=== PATIENT | female | born 1945 | race Caucasian/White ===

== ENCOUNTER 2017-12-30 09:31 | Emergency (ER) | payer MEDICARE, OTHER ==
--- NOTE | 2017-12-30 10:20 | ER Document Report ---
ED Medical Screen (RME) - General Chief Complaint: Doesn't Feel Right Stated Complaint: FEELING WEAK Time Seen by Provider: 12/30/17 10:12 Mode of Arrival: Ambulatory Information source: Patient Notes: 72-year-old female history of 2 previous CVAs presents with complaints of not feeling well. Patient is unable to explain her complaints, denies any weakness numbness. Patient notes she woke around 4:00 this morning was feeling fine around 5 she started not feeling well I have greeted and performed a rapid initial assessment of this patient. A comprehensive ED assessment and evaluation of the patient, analysis of test results and completion of the medical decision making process will be conducted by additional ED providers. PHYSICAL EXAMINATION: GENERAL: Well-appearing, well-nourished and in no acute distress. HEAD: Atraumatic, normocephalic. EYES: Pupils equal round extraocular movements intact, conjunctiva are normal. ENT: Nares patent NECK: Normal range of motion LUNGS: No respiratory distress Musculoskeletal: Normal range of motion NEUROLOGICAL: Normal speech, normal gait. PSYCH: Normal mood, normal affect. SKIN: Warm, Dry, normal turgor, no rashes or lesions noted. TRAVEL OUTSIDE OF THE [place] IN LAST 30 DAYS: No - Related Data Allergies/Adverse Reactions: Penicillins Allergy (Verified 12/30/17 09:32) Past Medical History - Social History Frequency of alcohol use: None Drug Abuse: None - Past Medical History Cardiac Medical History: Reports: Hx Hypertension Neurological Medical History: Reports: Hx Cerebrovascular Accident Renal/ Medical History: Denies: Hx Peritoneal Dialysis Psychiatric Medical History: Reports: Hx Depression Past Surgical History: Reports: Hx Section, Hx Gynecologic Surgery - Immunizations Hx Diphtheria, Pertussis, Tetanus Vaccination: - unknown
[2017-12-30 10:48] LABS: INTERNATIONAL RATION (INR) 0.94; PARTIAL THROMBOPLASTIN TIME 41.7 SEC (23.5-35.8); PROTHROMBIN TIME 13.3 SEC (11.4-15.4)
[2017-12-30 10:50] LABS: ABSOLUTE EOSINOPHILS # (AUTO) 0.2 10^3/uL (0.0-0.6); ABSOLUTE LYMPHOCYTES (AUTO) 1.2 10^3/uL (0.5-4.7); ABSOLUTE MONOCYTES (AUTO) 0.6 10^3/uL (0.1-1.4); ABSOLUTE NEUT (AUTO) 2.4 10^3/uL (1.7-8.2); BASOPHILS % (AUTO) 0.8 % (0-2); EOSINOPHILS % (AUTO) 4.6 % (0-6); HEMATOCRIT 47.3 % (36.0-47.0); LYMPHOCYTES % (AUTO) 26.5 % (13-45); MEAN CORPUSCULAR HEMOGLOBIN 28.9 pg (27.0-33.4); MEAN CORPUSCULAR HGB CONC 33.7 g/dL (32.0-36.0); MEAN CORPUSCULAR VOLUME 86 fl (80-97); MONOCYTES % (AUTO) 13.8 % (3-13); PLATELET COUNT 175 10^3/uL (150-450); RED BLOOD COUNT 5.52 10^6/uL (3.72-5.28); RED CELL DISTRIBUTION WIDTH 13.9 % (11.5-14.0); SEGMENTED NEUTROPHILS % (AUTO) 54.3 % (42-78); TOTAL CELLS COUNTED % (AUTO) 100 %; WHITE BLOOD COUNT 4.4 10^3/uL (4.0-10.5)
--- NOTE | 2017-12-30 10:56 | ER Document Report ---
ED General - General Chief Complaint: Doesn't Feel Right Stated Complaint: FEELING WEAK Time Seen by Provider: 12/30/17 10:12 Mode of Arrival: Ambulatory Information source: Patient Notes: 72-year-old female complaining of "not feeling right, shaky, weak" since about 830 this morning. She felt this way starting at 8 AM and is similar to when she had 2 previous strokes, and 1 minii stroke. Scared she is having another one. No chest pain, sob, abd. pain, dysuria, fever, chills, sore throat or cough. She nor her sister who drove her here noticed any change in strength, behavior, speech , or thinking. Hx UTI. PCP: Dr. Bar. TRAVEL OUTSIDE OF THE [place] IN LAST 30 DAYS: No - Related Data Allergies/Adverse Reactions: Penicillins Allergy (Verified 12/30/17 09:32) Past Medical History - General Information source: Patient - Social History Smoking Status: Never Smoker Frequency of alcohol use: None Drug Abuse: None Lives with: Spouse/Significant other Family History: Reviewed & Not Pertinent Patient has suicidal ideation: No Patient has homicidal ideation: No - Past Medical History Cardiac Medical History: Reports: Hx Hypercholesterolemia, Hx Hypertension Neurological Medical History: Reports: Hx Cerebrovascular Accident Renal/ Medical History: Denies: Hx Peritoneal Dialysis Psychiatric Medical History: Reports: Hx Depression Past Surgical History: Reports: Hx Section, Hx Gynecologic Surgery - Immunizations Hx Diphtheria, Pertussis, Tetanus Vaccination: - unknown Review of Systems - Review of Systems Constitutional: See HPI EENT: No symptoms reported Cardiovascular: No symptoms reported Respiratory: No symptoms reported Gastrointestinal: No symptoms reported Genitourinary: No symptoms reported Female Genitourinary: No symptoms reported Musculoskeletal: No symptoms reported Skin: No symptoms reported Hematologic/Lymphatic: No symptoms reported Neurological/Psychological: No symptoms reported Physical Exam - Vital signs Vitals: Temp Pulse Resp BP Pulse Ox 98.7 F 93 20 132/80 H 97 12/30/17 09:37 12/30/17 09:37 12/30/17 09:37 12/30/17 09:37 12/30/17 09:37 Interpretation: Normal - General General appearance: Appears well, Alert - HEENT Head: Normocephalic, Atraumatic Eyes: Normal Conjunctiva: Normal Pupils: PERRL Pharynx: Normal Neck: Supple. No: Lymphadenopathy - Respiratory Respiratory status: No respiratory distress Chest status: Nontender Breath sounds: Normal Chest palpation: Normal - Cardiovascular Rhythm: Regular Heart sounds: Normal auscultation Murmur: No - Abdominal Inspection: Normal Distension: No distension Bowel sounds: Normal Tenderness: Nontender. No: Tender Organomegaly: No organomegaly - Back Back: Normal, Nontender - Extremities General upper extremity: Normal inspection, Nontender, Normal color, Normal ROM , Normal temperature General lower extremity: Normal inspection, Nontender, Normal color, Normal ROM , Normal temperature, Normal weight bearing. No: Georgina's sign Notes: conor normal strength - Neurological Neuro grossly intact: Yes Cognition: Normal Orientation: AAOx4 Brittany Coma Scale Eye Opening: Spontaneous Brittany Coma Scale Verbal: Oriented Platte Coma Scale Motor: Obeys Commands Brittany Coma Scale Total: 15 Speech: Normal Motor strength normal: LUE, RUE, LLE, RLE Sensory: Normal - Psychological Associated symptoms: Normal affect, Normal mood - Skin Skin Temperature: Warm Skin Moisture: Dry Skin Color: Normal Skin irregularity: negative: Rash Course - Re-evaluation Re-evalutation: 12/30/17 11:10 CT scan shows only chronic changes urinalysis is pending 12/30/17 12:49 Urinalysis shows 3+ bacteria and 13 WBCs. Previous visit showed the same with a [id number] genital culture result but I will treat for possible urinary tract infection pending urine culture. She is asymptomatic. Discussed with patient about the urine culture pending in the lab. She will follow-up with Dr. Galloway [facility]. 12/30/17 13:02 12/30/17 13:04 - Vital Signs Vital signs: Temp Pulse Resp BP Pulse Ox 98.7 F 76 18 132/76 H 97 12/30/17 09:37 12/30/17 10:10 12/30/17 10:10 12/30/17 10:10 12/30/17 10:38 - Laboratory Result Diagrams: 12/30/17 10:24 12/30/17 10:24 Laboratory results interpreted by me: 12/30/17 12/30/17 12/30/17 10:24 10:24 10:24 RBC 5.52 H Hgb 16.0 H Hct 47.3 H Monocytes % 13.8 H APTT 41.7 H AST 45 H Ur Leukocyte Esterase 12/30/17 11:28 RBC Hgb Hct Monocytes % APTT AST Ur Leukocyte Esterase LARGE H Discharge - Discharge Clinical Impression: bacteruria Condition: Good Disposition: HOME, SELF-CARE Instructions: Urinary Tract Infection ([facility]), Nitrofurantoin ([facility]) Additional Instructions: Drink plenty of fluids Macrobid 100 mg twice a day for 1 week Follow-up with Dr. Nilesh Leigh Return to the emergency room for any worsening of the symptoms Prescriptions: Nitrofurantoin Monohyd/M-Cryst [Macrobid 100 mg Capsule] 100 mg PO BID #14 capsule Referrals: MADDI HEWITT MD [NO LOCAL MD] - Follow up in 3-5 days
[2017-12-30 11:03] LABS: ALANINE AMINOTRANSFERASE 52 U/L (9-52); ALBUMIN 4.5 g/dL (3.5-5.0); ALKALINE PHOSPHATASE 72 U/L (38-126); ANION GAP 14 (5-19); ASPARTATE AMINO TRANSFERASE 45 U/L (14-36); BILIRUBIN,DIRECT 0.1 mg/dL (0.0-0.4); BILIRUBIN,TOTAL 0.7 mg/dL (0.2-1.3); BLOOD UREA NITROGEN 12 mg/dL (7-20); CALCIUM 9.7 mg/dL (8.4-10.2); CARBON DIOXIDE 27 mmol/L (22-30); CHLORIDE 102 mmol/L (98-107); CREATINE KINASE 38 U/L (30-135); GLUCOSE 101 mg/dL (75-110); SODIUM 142.5 mmol/L (137-145); TOTAL PROTEIN 7.4 g/dL (6.3-8.2)
--- NOTE | 2017-12-30 11:03 | RADIOLOGY REPORT (SQ) ---
EXAM DESCRIPTION: CT HEAD WITHOUT COMPLETED DATE/TIME: 12/30/2017 10:55 am REASON FOR STUDY: hx cva, not feeling right COMPARISON: 10/23/2016 TECHNIQUE: Axial images acquired through the brain without intravenous contrast. Images reviewed wi th bone, brain and subdural windows. Images stored on PACS. All CT scanners at this facility use dose modulation, iterative reconstruction, and/or weight based d osing when appropriate to reduce radiation dose to as low as reasonably achievable (ALARA). [facility]: Dose Right [facility]: CareDose [facility]: Dose Right [facility]: Teradose 4D [facility]: Smart [employer] RADIATION DOSE: CT Rad equipment meets quality standard of care and radiation dose reduction techniq ues were employed. CTDIvol: 64.6 mGy. DLP: 1163 mGy-cm.mGy. LIMITATIONS: None. FINDINGS: VENTRICLES: Prominent. CEREBRUM: No masses. No hemorrhage. No midline shift. Old left MCA territory and right MCA territo ry infarcts. Areas of low density in the white matter most likely due to chronic micro-vascular isch emic change. No evidence for acute infarction. CEREBELLUM: No masses. No hemorrhage. Old cerebellar infarcts. No evidence for acute infarction. EXTRAAXIAL SPACES: Age-related involutional change. No fluid collections. No masses. ORBITS AND GLOBE: No intra- or extraconal masses. Normal contour of globe without masses. CALVARIUM: No fracture. PARANASAL SINUSES: No fluid or mucosal thickening. SOFT TISSUES: No mass or hematoma. OTHER: No other significant finding. IMPRESSION: Chronic ischemic changes. EVIDENCE OF ACUTE STROKE: NO. TECHNICAL DOCUMENTATION: JOB ID: [id number] Quality ID # [id number]: Final reports with documentation of one or more dose reduction techniques (e.g., Au tomated exposure control, adjustment of the mA and/or kV according to patient size, use of iterative reconstruction technique) 2010 [employer]- All Rights Reserved Reading location - IP/workstation name: [email or web address]
--- NOTE | 2017-12-30 11:10 | RADIOLOGY REPORT (SQ) ---
EXAM DESCRIPTION: CHEST SINGLE VIEW COMPLETED DATE/TIME: 12/30/2017 10:57 am REASON FOR STUDY: hx cva, not feeling right COMPARISON: 10/23/2016 EXAM PARAMETERS: NUMBER OF VIEWS: One view. TECHNIQUE: Single frontal radiographic view of the chest acquired. RADIATION DOSE: NA LIMITATIONS: None. FINDINGS: LUNGS AND PLEURA: No opacities, masses or pneumothorax. No pleural effusion. MEDIASTINUM AND HILAR STRUCTURES: No masses. Contour normal. HEART AND VASCULAR STRUCTURES: Heart normal in size. Normal vasculature. BONES: No acute findings. HARDWARE: None in the chest. OTHER: No other significant finding. IMPRESSION: NO ACUTE RADIOGRAPHIC FINDING IN THE CHEST. TECHNICAL DOCUMENTATION: JOB ID: [id number] [employer]- All Rights Reserved Reading location - IP/workstation name: [email or web address]
[2017-12-30 11:15] LABS: CREATINE KINASE MB 0.31 ng/mL (<4.55)
[2017-12-30 11:17] LABS: TROPONIN I < 0.012 ng/mL
[2017-12-30 12:08] LABS: APPEARANCE,URINE SLIGHTLY-CLOUDY; BILIRUBIN,URINE NEGATIVE (NEGATIVE); COLOR,URINE YELLOW; GLUCOSE, URINE NEGATIVE (NEGATIVE); KETONES,URINE NEGATIVE (NEGATIVE); LEUKOCYTE ESTERASE,URINE LARGE (NEGATIVE); NITRITE,URINE NEGATIVE (NEGATIVE); PROTEIN,URINE NEGATIVE (NEGATIVE); URINE SPECIFIC GRAVITY 1.006; UROBILINOGEN,URINE NEGATIVE mg/dL (<2.0)
[2017-12-30] MEDS ORDERED: NITROFURANTOIN MONOHYD/M-CRYST 100 MG CAPSULE PO ONE (13:02)
--- NOTE | 2017-12-30 13:04 | EKG REPORT ---
SEVERITY:- BORDERLINE ECG - SINUS RHYTHM BORDERLINE T ABNORMALITIES, INFERIOR LEADS : Confirmed by: Marv Marcial MD 30-Dec-2017 13:03:22
[2017-12-30 14:05] VITALS: BP 139/73
== END 2017-12-30 14:05 | disposition home or self-care (01) ==
LOC: ER 09:31
DX: R82.71 Bacteriuria (principal); R53.1 Weakness; I10 Essential (primary) hypertension; Z86.73 Personal history of transient ischemic attack (TIA), and cerebral infarction without residual deficits; Z88.0 Allergy status to penicillin
CPT/HCPCS: 36415; 70450; 71045; 80053; 81001; 82550; 82553; 84484; 85025; 85610; 85730; 93005; 93010; 99285

== ENCOUNTER 2018-03-16 18:03 | Inpatient (IN) | payer MEDICARE, OTHER ==
--- NOTE | 2018-03-16 18:24 | ER Document Report ---
ED Medical Screen (RME) - General Chief Complaint: Altered Mental Status Stated Complaint: ALTERED MENTAL STATUS Time Seen by Provider: 03/16/18 18:12 Notes: RAPID MEDICAL EVALUATION DISCLOSURE I have seen this patient as part of a Rapid Medical Evaluation and, if applicable, placed any initially appropriate orders. The patient will be seen and fully evaluated, including a full history and physical exam, by a provider ( in Main ED or Fast Track) when a room becomes available. 72-year-old female PMH CVA/TIA who with family who states that she has been confused over the past day. The patient states she feels like she cannot get her words out and noticed this yesterday around 5 PM. The family also states she is not able to recognize letters and simple objects. She is also not able to operate her iPad which she is normally very good at. Patient denies any slurred speech or extremity weakness numbness tingling. The daughter, Mckenzie, denies any changes in facial symmetry. EXAM CTAB RRR Mild expressive aphasia Strength 5/5 with intact sensation all extremities NOTE Since onset symptoms 25 hours ago, code stroke not activated TRAVEL OUTSIDE OF THE [place] IN LAST 30 DAYS: No - Related Data Allergies/Adverse Reactions: Penicillins Allergy (Verified 12/30/17 09:32) Past Medical History - Past Medical History Cardiac Medical History: Reports: Hx Hypercholesterolemia, Hx Hypertension Neurological Medical History: Reports: Hx Cerebrovascular Accident Renal/ Medical History: Denies: Hx Peritoneal Dialysis Psychiatric Medical History: Reports: Hx Depression Past Surgical History: Reports: Hx Section, Hx Gynecologic Surgery - Immunizations Hx Diphtheria, Pertussis, Tetanus Vaccination: - unknown
--- NOTE | 2018-03-16 19:36 | RADIOLOGY REPORT (SQ) ---
EXAM DESCRIPTION: CT HEAD WITHOUT COMPLETED DATE/TIME: 03/16/2018 7:08 pm REASON FOR STUDY: aphasia; agnosia; eval stroke COMPARISON: CT brain 12/30/2017. TECHNIQUE: Axial images acquired through the brain without intravenous contrast. Images reviewed wi th bone, brain and subdural windows. Images stored on PACS. All CT scanners at this facility use dose modulation, iterative reconstruction, and/or weight based d osing when appropriate to reduce radiation dose to as low as reasonably achievable (ALARA). [facility]: Dose Right [facility]: CareDose [facility]: Dose Right [facility]: Teradose 4D [facility]: Smart [employer] RADIATION DOSE: mGy. LIMITATIONS: None. FINDINGS: VENTRICLES: Prominent. CEREBRUM: No mass effect. No hemorrhage. No midline shift. Areas of low density in the white matte r most likely due to chronic micro-vascular ischemic change. Remote infarct at the left frontal lobe . Loss of tovar-white matter differentiation at the left parietal lobe. CEREBELLUM: No hemorrhage. No alteration of density. No evidence for acute infarction. Bilateral o ld infarcts at the cerebellar hemispheres. EXTRAAXIAL SPACES: Age-related involutional change. No fluid collections. ORBITS AND GLOBE: Symmetrical contour of the globes. CALVARIUM: No depressed fracture. PARANASAL SINUSES: No air-fluid level. SOFT TISSUES: No hematoma. IMPRESSION: 1. Loss of tovar-white matter differentiation at the left parietal lobe, suggestive of an acute/ subacute infarct at the left MCA territory. No acute intracranial hemorrhage. 2. Diffuse parenchymal volume loss. Chronic microvascular ischemic changes with old left frontal and bilateral cerebellar infarcts. EVIDENCE OF ACUTE STROKE: YES. LEFT MCA COMMENT: Pertinent findings on the imaging study reported as a CRITICAL RESULT to Diana Cunha at19 :30 hrs on 03/16/2018. Category of Critical Result: Loss of tovar-white matter differentiation at the left parietal lobe, sug gestive of an acute/ subacute infarct at the left MCA territory. Quality ID # [id number]: Final reports with documentation of one or more dose reduction techniques (e.g., Au tomated exposure control, adjustment of the mA and/or kV according to patient size, use of iterative reconstruction technique) TECHNICAL DOCUMENTATION: JOB ID: [id number] [place]-[id number] 2010 [employer]- All Rights Reserved Reading location - IP/workstation name: [email or web address]
--- NOTE | 2018-03-16 19:38 | RADIOLOGY REPORT (SQ) ---
EXAM DESCRIPTION: CHEST 2 VIEWS COMPLETED DATE/TIME: 03/16/2018 7:20 pm REASON FOR STUDY: stroke like sx COMPARISON: Chest x-ray 10/23/2016. EXAM PARAMETERS: NUMBER OF VIEWS: two views TECHNIQUE: Digital Frontal and Lateral radiographic views of the chest acquired. RADIATION DOSE: NA LIMITATIONS: none FINDINGS: LUNGS AND PLEURA: No consolidation, pneumothorax or pleural effusion. MEDIASTINUM AND HILAR STRUCTURES: No masses or contour abnormalities. HEART AND VASCULAR STRUCTURES: Heart normal size. No evidence for failure. BONES: No acute findings. HARDWARE: None in the chest. IMPRESSION: No acute radiographic finding in the chest. TECHNICAL DOCUMENTATION: JOB ID: [id number] [id number] 2010 [employer]- All Rights Reserved Reading location - IP/workstation name: [email or web address]
--- NOTE | 2018-03-16 19:39 | ER Document Report ---
ED Neuro Symptoms/Deficit - General Chief Complaint: Altered Mental Status Stated Complaint: ALTERED MENTAL STATUS Time Seen by Provider: 03/16/18 18:12 Mode of Arrival: Wheelchair Information source: Patient, Relative Notes: Patient with complaint of confusion and being unable to put her words together. Patient's family states that this started Friday night at 4 PM. According to family patient usually uses her iPad every day patient was unable to recall the password, upon further investigation family showed patient some words written on a piece of paper and patient was only able to recall 50% of them. Patient denies any slurred speech, any facial numbness or droop or any extremity weakness or numbness. Family reports that patient has a history of a TIA 1 year ago that her symptoms were similar to this at that time. Patient denies any acute complaints, denies any fever, nausea, vomiting. Patient does report that 2 days ago she had multiple episodes of diarrhea which is now resolved. Patient is already taking Plavix 75 mg daily as a result of her previous TIA. TRAVEL OUTSIDE OF THE [place] IN LAST 30 DAYS: No - Related Data Allergies/Adverse Reactions: Penicillins Allergy (Verified 12/30/17 09:32) Past Medical History - Social History Smoking Status: Former Smoker Chew tobacco use (# tins/day): No Frequency of alcohol use: None Drug Abuse: None Family History: Reviewed & Not Pertinent Patient has suicidal ideation: No Patient has homicidal ideation: No - Past Medical History Cardiac Medical History: Reports: Hx Hypercholesterolemia, Hx Hypertension Neurological Medical History: Reports: Hx Cerebrovascular Accident Renal/ Medical History: Denies: Hx Peritoneal Dialysis Psychiatric Medical History: Reports: Hx Depression Past Surgical History: Reports: Hx Section, Hx Gynecologic Surgery - Immunizations Hx Diphtheria, Pertussis, Tetanus Vaccination: - unknown Physical Exam - Vital signs Vitals: Resp Pulse Ox 15 97 03/16/18 19:43 03/16/18 19:43 Course - Re-evaluation Re-evalutation: Well-appearing 72-year-old female in no acute distress. Patient is alert and oriented 4. Patient with onset of confusion and being unable to put her words together starting last night at 4pm. Radiology called with critical findings of acute/subacute infarct to the left MCA. Awaiting all lab results. Patient's physical exam is benign. Patient does still report some periods where she has a hard time putting her words together but denies any other symptoms such as slurred speech, any physical deficits such as weakness, numbness, paralysis. Updated patient and family regarding CT results. Patient with no complaints at this time. Vitals stable. Patient is outside the treatment window for TPA. Patient is already taking Plavix. Will call hospitalist as soon as all labs resulted. All laboratory studies are unremarkable. Patient has not had any change in her symptoms. Patient has remained hemodynamically stable during her stay in the ED. Patient will be admitted to hospitalist, Dr. Rodriguez agrees to admit patient. - Vital Signs Vital signs: Temp Pulse Resp BP Pulse Ox 97.9 F 66 20 126/61 H 96 03/17/18 03:46 03/17/18 04:00 03/17/18 04:00 03/17/18 04:00 03/17/18 04:00 - Laboratory Result Diagrams: 03/17/18 04:39 03/16/18 19:34 Laboratory results interpreted by me: 03/16/18 03/16/18 03/16/18 19:34 19:34 19:34 RBC 5.39 H Hgb 15.6 H Monocytes % 16.0 H APTT 39.4 H Est GFR (Non-Af Amer) 56 L AST 54 H ALT 56 H Ur Leukocyte Esterase 03/16/18 20:23 RBC Hgb Monocytes % APTT Est GFR (Non-Af Amer) AST ALT Ur Leukocyte Esterase TRACE H Discharge - Discharge Clinical Impression: Stroke Qualifiers: CVA mechanism: unspecified Qualified Code(s): I63.9 - Cerebral infarction, unspecified Condition: Stable Disposition: ADMITTED INPATIENT Admitting Provider: Hospitalist Unit Admitted: Telemetry
[2018-03-16 19:48] LABS: ABSOLUTE EOSINOPHILS # (AUTO) 0.2 10^3/uL (0.0-0.6); ABSOLUTE LYMPHOCYTES (AUTO) 1.5 10^3/uL (0.5-4.7); ABSOLUTE MONOCYTES (AUTO) 0.8 10^3/uL (0.1-1.4); ABSOLUTE NEUT (AUTO) 2.5 10^3/uL (1.7-8.2); BASOPHILS % (AUTO) 0.7 % (0-2); EOSINOPHILS % (AUTO) 4.4 % (0-6); HEMATOCRIT 46.3 % (36.0-47.0); HEMOGLOBIN 15.6 g/dL (12.0-15.5); LYMPHOCYTES % (AUTO) 29.3 % (13-45); MEAN CORPUSCULAR HGB CONC 33.7 g/dL (32.0-36.0); MEAN CORPUSCULAR VOLUME 86 fl (80-97); PLATELET COUNT 171 10^3/uL (150-450); RED BLOOD COUNT 5.39 10^6/uL (3.72-5.28); RED CELL DISTRIBUTION WIDTH 13.5 % (11.5-14.0); SEGMENTED NEUTROPHILS % (AUTO) 49.6 % (42-78); TOTAL CELLS COUNTED % (AUTO) 100 %; WHITE BLOOD COUNT 5.1 10^3/uL (4.0-10.5)
[2018-03-16 19:49] LABS: INTERNATIONAL RATION (INR) 0.93; PARTIAL THROMBOPLASTIN TIME 39.4 SEC (23.5-35.8); PROTHROMBIN TIME 12.9 SEC (11.4-15.4)
[2018-03-16 20:04] LABS: ALANINE AMINOTRANSFERASE 56 U/L (9-52); ALBUMIN 4.5 g/dL (3.5-5.0); ALKALINE PHOSPHATASE 85 U/L (38-126); ANION GAP 12 (5-19); ASPARTATE AMINO TRANSFERASE 54 U/L (14-36); BILIRUBIN,DIRECT 0.3 mg/dL (0.0-0.4); BILIRUBIN,TOTAL 0.6 mg/dL (0.2-1.3); BLOOD UREA NITROGEN 16 mg/dL (7-20); CALCIUM 9.8 mg/dL (8.4-10.2); CARBON DIOXIDE 28 mmol/L (22-30); CHLORIDE 101 mmol/L (98-107); CREATINE KINASE 42 U/L (30-135); GLUCOSE 97 mg/dL (75-110); POTASSIUM 4.3 mmol/L (3.6-5.0); TOTAL PROTEIN 7.9 g/dL (6.3-8.2)
[2018-03-16] MEDS ORDERED: DOCUSATE SODIUM 100 MG CAPSULE PO PRN (20:43)
[2018-03-16] MEDS ORDERED: MAGNESIUM HYDROXIDE SUSP 30 ML UDCUP PO PRN (20:43)
[2018-03-16] MEDS ORDERED: ACETAMINOPHEN 325 MG TABLET PO PRN (20:43)
[2018-03-16 20:48] LABS: APPEARANCE,URINE CLEAR; BILIRUBIN,URINE NEGATIVE (NEGATIVE); COLOR,URINE STRAW; GLUCOSE, URINE NEGATIVE (NEGATIVE); KETONES,URINE NEGATIVE (NEGATIVE); LEUKOCYTE ESTERASE,URINE TRACE (NEGATIVE); NITRITE,URINE NEGATIVE (NEGATIVE); PROTEIN,URINE NEGATIVE (NEGATIVE); URINE SPECIFIC GRAVITY 1.002; UROBILINOGEN,URINE NEGATIVE mg/dL (<2.0)
[2018-03-16] MEDS: HEPARIN SOD (PORCINE) 5,000 UNIT/ML 1 ML SYRINGE SUBCUT SCH (21:29)
[2018-03-16] MEDS: CARVEDILOL 3.125 MG TABLET PO SCH (21:29)
[2018-03-16] MEDS: ATORVASTATIN CALCIUM 10 MG TABLET PO SCH (21:30)
[2018-03-16] MEDS: ALPRAZOLAM 0.5 MG TABLET PO SCH (21:30)
[2018-03-17 05:09] LABS: ABSOLUTE EOSINOPHILS # (AUTO) 0.3 10^3/uL (0.0-0.6); ABSOLUTE LYMPHOCYTES (AUTO) 1.6 10^3/uL (0.5-4.7); ABSOLUTE MONOCYTES (AUTO) 0.8 10^3/uL (0.1-1.4); ABSOLUTE NEUT (AUTO) 1.9 10^3/uL (1.7-8.2); EOSINOPHILS % (AUTO) 5.6 % (0-6); HEMATOCRIT 43.2 % (36.0-47.0); HEMOGLOBIN 14.7 g/dL (12.0-15.5); LYMPHOCYTES % (AUTO) 35.3 % (13-45); MEAN CORPUSCULAR HEMOGLOBIN 29.4 pg (27.0-33.4); MEAN CORPUSCULAR HGB CONC 34.1 g/dL (32.0-36.0); MEAN CORPUSCULAR VOLUME 86 fl (80-97); MONOCYTES % (AUTO) 17.4 % (3-13); PLATELET COUNT 152 10^3/uL (150-450); RED BLOOD COUNT 5.03 10^6/uL (3.72-5.28); RED CELL DISTRIBUTION WIDTH 13.5 % (11.5-14.0); SEGMENTED NEUTROPHILS % (AUTO) 40.7 % (42-78); TOTAL CELLS COUNTED % (AUTO) 100 %; WHITE BLOOD COUNT 4.6 10^3/uL (4.0-10.5)
[2018-03-17] MEDS: HEPARIN SOD (PORCINE) 5,000 UNIT/ML 1 ML SYRINGE SUBCUT SCH ×3 (05:10→21:13)
--- NOTE | 2018-03-17 05:22 | PDOC H&P ---
History of Present Illness Admission Date/PCP: 03/16/18 20:55 MADDI HEWITT MD Patient complains of: Word finding difficulty History of Present Illness: TATYANA DONAHUE is a 72 year old female with a past medical history of hypertension, dyslipidemia, obesity and remote CVA without deficit. Patient presents with greater than 24 hours of word finding difficulty and trouble using her iPad. She denies focal weakness, confusion, headache, palpitations nausea vomiting or chest pain. She denies recent change in medication regiment. Patient's daughter is at bedside who verifies history. She is currently in no distress and conversational. In the emergency room she is found to have a CT of the head suggestive of a left MCA infarct but an otherwise unremarkable workup. She receives aspirin and referred to the hospitalist for admission. Past Medical History Cardiac Medical History: Reports: Hyperlipidema, Hypertension Neurological Medical History: Reports: Ischemic CVA Psychiatric Medical History: Reports: Depression Past Surgical History Past Surgical History: Reports: Section Social History Information Source: Patient Lives with: Family Smoking Status: Former Smoker Number of Years Smokin Last Time Smoked: 1982 Frequency of Alcohol Use: None Hx Recreational Drug Use: No Drugs: None Hx Prescription Drug Abuse: No - Advance Directive Resuscitation Status: Full Code Family History Family History: DM, Hypertension Parental Family History Reviewed: Yes Children Family History Reviewed: Yes Sibling(s) Family History Reviewed.: Yes Medication/Allergy Home Medications: Alprazolam [Xanax 0.5 mg Tablet] 0.5 mg PO Q12HP PRN 04/22/15 Amlodipine Besylate [Norvasc 5 mg Tablet] 5 mg PO DAILY 04/22/15 Bupropion HCl [Bupropion Xl] 150 mg PO Q12 04/22/15 Cholecalciferol (Vitamin D3) [Vitamin D] 1,000 unit PO BID 04/22/15 [place]-3/Dha/Epa/Fish Oil [Fish Oil 1,000 mg Softgel] 1 each PO DAILY 04/22/15 Pravastatin Sodium [Pravachol] 20 mg PO QHS 04/22/15 Clopidogrel Bisulfate [Plavix 75 mg Tablet] 75 mg PO DAILY #30 tablet 04/24/15 Carvedilol [Carvedilol] 3.125 mg PO Q12 12/30/17 Cyanocobalamin/FA/Pyridoxine [F[place]bee Tablet] 1 tab PO DAILY 12/30/17 Aspirin [Aspirin EC] 81 mg PO DAILY 03/16/18 Allergies/Adverse Reactions: Penicillins Allergy (Verified 12/30/17 09:32) Review of Systems Constitutional: ABSENT: chills, fever(s), headache(s), weight gain, weight loss Eyes: ABSENT: visual disturbances Ears: ABSENT: hearing changes Cardiovascular: ABSENT: chest pain, dyspnea on exertion, edema, orthropnea, palpitations Respiratory: ABSENT: cough, hemoptysis Gastrointestinal: ABSENT: abdominal pain, constipation, diarrhea, hematemesis, hematochezia, nausea, vomiting Genitourinary: ABSENT: dysuria, hematuria Musculoskeletal: ABSENT: joint swelling Integumentary: ABSENT: rash, wounds Neurological: ABSENT: abnormal gait, abnormal speech, confusion, dizziness, focal weakness, syncope Psychiatric: ABSENT: anxiety, depression, homidical ideation, suicidal ideation Endocrine: ABSENT: cold intolerance, heat intolerance, polydipsia, polyuria Hematologic/Lymphatic: ABSENT: easy bleeding, easy bruising Physical Exam Vital Signs: Temp Pulse Resp BP Pulse Ox 97.9 F 66 20 126/61 H 96 03/17/18 03:46 03/17/18 04:00 03/17/18 04:00 03/17/18 04:00 03/17/18 04:00 General appearance: PRESENT: no acute distress, well-developed, well-nourished Head exam: PRESENT: atraumatic, normocephalic Eye exam: PRESENT: conjunctiva pink, EOMI, PERRLA. ABSENT: scleral icterus Ear exam: PRESENT: normal external ear exam Mouth exam: PRESENT: moist, tongue midline Neck exam: ABSENT: carotid bruit, JVD, lymphadenopathy, thyromegaly Respiratory exam: PRESENT: clear to auscultation conor. ABSENT: rales, rhonchi, wheezes Cardiovascular exam: PRESENT: RRR. ABSENT: diastolic murmur, rubs, systolic murmur Pulses: PRESENT: normal dorsalis pedis pul Vascular exam: PRESENT: normal capillary refill GI/Abdominal exam: PRESENT: normal bowel sounds, soft. ABSENT: distended, guarding, mass, organolmegaly, rebound, tenderness Rectal exam: PRESENT: deferred Extremities exam: PRESENT: full ROM. ABSENT: calf tenderness, clubbing, pedal edema Neurological exam: PRESENT: alert, awake, oriented to person, oriented to place , oriented to time, oriented to situation, CN II-XII grossly intact. ABSENT: motor sensory deficit Psychiatric exam: PRESENT: appropriate affect, normal mood. ABSENT: homicidal ideation, suicidal ideation Skin exam: PRESENT: dry, intact, warm. ABSENT: cyanosis, rash Results Laboratory Results: 03/17/18 04:39 03/17/18 04:39 WBC 4.6 RBC 5.03 Hgb 14.7 Hct 43.2 MCV 86 MCH 29.4 MCHC 34.1 RDW 13.5 Plt Count 152 Seg Neutrophils % 40.7 L Lymphocytes % 35.3 Monocytes % 17.4 H Eosinophils % 5.6 Basophils % 1.0 Absolute Neutrophils 1.9 Absolute Lymphocytes 1.6 Absolute Monocytes 0.8 Absolute Eosinophils 0.3 Absolute Basophils 0.0 Impressions: Chest X-Ray 03/16/18 18:20 IMPRESSION: No acute radiographic finding in the chest. Head CT 03/16/18 18:20 IMPRESSION: 1. Loss of tovar-white matter differentiation at the left parietal lobe, suggestive of an acute/ subacute infarct at the left MCA territory. No acute intracranial hemorrhage. 2. Diffuse parenchymal volume loss. Chronic microvascular ischemic changes with old left frontal and bilateral cerebellar infarcts. EVIDENCE OF ACUTE STROKE: YES. LEFT MCA Assessment & Plan - Diagnosis (1) Acute CVA (cerebrovascular accident) Is this a current diagnosis for this admission?: Yes Plan: CVA care set, permissive hypertension, aspirin and statin. Speech therapy consult, follow-up carotid Doppler and echo. (2) HTN (hypertension) Is this a current diagnosis for this admission?: Yes Plan: Permissive hypertension, ZORAIDA inhibitor - Time Time Spent: 30 to 50 Minutes - Inpatient Certification Medical Necessity: Need Close Monitoring Due to Risk of Patient Decompensation
[2018-03-17 05:28] LABS: ANION GAP 11 (5-19); BLOOD UREA NITROGEN 13 mg/dL (7-20); CALCIUM 9.6 mg/dL (8.4-10.2); CARBON DIOXIDE 29 mmol/L (22-30); CHLORIDE 104 mmol/L (98-107); CHOLESTEROL 112.75 mg/dL (0-200); GLUCOSE 91 mg/dL (75-110); POTASSIUM 3.8 mmol/L (3.6-5.0); SODIUM 144.4 mmol/L (137-145); TRIGLYCERIDES 106 mg/dL (<150)
[2018-03-17 05:43] LABS: DIRECT LDL < 30 mg/dL (<100)
--- NOTE | 2018-03-17 08:54 | EKG REPORT ---
SEVERITY:- BORDERLINE ECG - SINUS RHYTHM LVH BY VOLTAGE BORDERLINE T ABNORMALITIES, INFERIOR LEADS : Confirmed by: Lynn Merchant 17-Mar-2018 08:53:56
[2018-03-17] MEDS: CLOPIDOGREL BISULFATE 75 MG TABLET PO SCH (11:39)
[2018-03-17] MEDS: ASPIRIN 81 MG TABLET, CHEWABLE PO SCH (11:40)
[2018-03-17] MEDS: ALPRAZOLAM 0.5 MG TABLET PO SCH ×2 (11:40→21:14)
[2018-03-17] MEDS: CARVEDILOL 3.125 MG TABLET PO SCH ×2 (11:40→21:14)
--- NOTE | 2018-03-17 14:07 | RADIOLOGY REPORT (SQ) ---
EXAM DESCRIPTION: CAROTID DOPPLER COMPLETED DATE/TIME: 03/17/2018 1:36 pm REASON FOR STUDY: cva COMPARISON: April 2015 TECHNIQUE: Grayscale ultrasound, Doppler velocity and spectra, and color Doppler images acquired of the extra-cranial carotid and vertebral arteries. Images stored on PACS. LIMITATIONS: None. FINDINGS: RIGHT CAROTID CCA Velocities: Within normal limits. ICA Velocities Peak systolic 0.63 m/s. End diastolic 0.14 m/s. Proximal ICA/CCA peak systolic ratio 1.0. Spectra normal. No significant plaque. LEFT CAROTID CCA Velocities: Within normal limits. ICA Velocities Peak systolic 0.80 m/s. End diastolic 0.21 m/s. Proximal ICA/CCA peak systolic ratio 1.4. Spectra normal. No significant plaque. VERTEBRAL ARTERIES: Antegrade flow. Normal waveforms. SUBCLAVIAN ARTERIES: No finding. OTHER: No other significant finding. IMPRESSION: NO HEMODYNAMICALLY SIGNIFICANT STENOSIS. COMMENT: Quality ID #[id number]: Velocity criteria are extrapolated from the diameter data as defined by t he Society of Radiologists in Ultrasound Consensus Conference. Radiology 2003: 229; 340-346. TECHNICAL DOCUMENTATION: JOB ID: [id number] [employer]- All Rights Reserved Reading location - IP/workstation name: [email or web address]
--- NOTE | 2018-03-17 15:13 | PDOC PROGRESS REPORT ---
Subjective Progress Note for:: 03/17/18 Subjective:: TATYANA DONAHUE is a 72 year old female who presented to the emergency department 03/16/2018 with a 24 hour history of word finding difficulty. CT head suggestive of a left MCA infarct. MRI/MRA pending. PMH includes HTN, dyslipidemia, CVA without deficit, and obesity. The patient was seen this morning on rounds, she is alert and oriented 3, able to answer all questions appropriately and speaking full sentences without pause. The patient does not exhibit symptoms of difficulty with word finding. Her speech is clear, she does not slur her words, and she is able to tolerate p.o. intake. No facial droop. Equal strength in all extremities, she is able to ambulate without difficulty. The patient denies any visual changes, headaches, or parasthesia. Reason For Visit: CVA Physical Exam Vital Signs: Temp Pulse Resp BP Pulse Ox 98.3 F 72 16 121/55 L 95 03/17/18 12:27 03/17/18 12:27 03/17/18 12:27 03/17/18 12:27 03/17/18 12:27 Intake & Output 03/16/18 03/17/18 03/18/18 06:59 06:59 06:59 Intake Total 203 Output Total 0 Balance 203 Weight 38.9 kg General appearance: PRESENT: no acute distress Head exam: PRESENT: atraumatic Eye exam: PRESENT: conjunctiva pink, EOMI, PERRLA Mouth exam: PRESENT: dry mucosa Neck exam: PRESENT: full ROM Respiratory exam: PRESENT: clear to auscultation conor, symmetrical, unlabored Cardiovascular exam: PRESENT: irregular rhythm Pulses: PRESENT: normal radial pulses GI/Abdominal exam: PRESENT: normal bowel sounds, soft. ABSENT: tenderness Rectal exam: PRESENT: deferred Extremities exam: PRESENT: full ROM, pedal edema Musculoskeletal exam: PRESENT: ambulatory, full ROM Neurological exam: PRESENT: alert, awake, oriented to person, oriented to place , oriented to time, oriented to situation, other - Patient reports difficulty with word finding, but was able to answer all questions appropriatley Psychiatric exam: PRESENT: appropriate affect Skin exam: PRESENT: intact, normal color Results Laboratory Results: 03/17/18 04:39 03/17/18 04:39 03/17/18 03/17/18 04:39 04:39 WBC 4.6 RBC 5.03 Hgb 14.7 Hct 43.2 MCV 86 MCH 29.4 MCHC 34.1 RDW 13.5 Plt Count 152 Seg Neutrophils % 40.7 L Lymphocytes % 35.3 Monocytes % 17.4 H Eosinophils % 5.6 Basophils % 1.0 Absolute Neutrophils 1.9 Absolute Lymphocytes 1.6 Absolute Monocytes 0.8 Absolute Eosinophils 0.3 Absolute Basophils 0.0 Sodium 144.4 Potassium 3.8 Chloride 104 Carbon Dioxide 29 Anion Gap 11 BUN 13 Creatinine 0.88 Est GFR ( Amer) > 60 Est GFR (Non-Af Amer) > 60 Glucose 91 Calcium 9.6 Triglycerides 106 Cholesterol 112.75 LDL Cholesterol Direct < 30 VLDL Cholesterol 21.0 HDL Cholesterol 61 Impressions: Chest X-Ray 03/16/18 18:20 IMPRESSION: No acute radiographic finding in the chest. Head CT 03/16/18 18:20 IMPRESSION: 1. Loss of tovar-white matter differentiation at the left parietal lobe, suggestive of an acute/ subacute infarct at the left MCA territory. No acute intracranial hemorrhage. 2. Diffuse parenchymal volume loss. Chronic microvascular ischemic changes with old left frontal and bilateral cerebellar infarcts. EVIDENCE OF ACUTE STROKE: YES. LEFT MCA Carotid Doppler Study 03/17/18 20:44 IMPRESSION: NO HEMODYNAMICALLY SIGNIFICANT STENOSIS. Status: Imported from PACS Assessment & Plan - Diagnosis (1) Acute CVA (cerebrovascular accident) Is this a current diagnosis for this admission?: Yes Plan: Acute CVA, appears to be MCA infarct based on CT results. Unclear etiology at this time - thrombotic versus embolic. The patient's BP was only slightly elevated upon arrival to [facility] (SBP 155) No apparent motor or sensory deficits. The patient only reports having difficulty with word finding. MRI/MRA head pending Carotid doppler results show no evidence of stenosis ECHOcardiogram completed, results pending PT/OT consulted Continue home dose plavix 75 mg PO daily and ASA 81mg PO daily Continue statin therapy Will require outpatient follow up to neurology (2) HTN (hypertension) Is this a current diagnosis for this admission?: Yes Plan: Patient has a history of HTN, she has remained relatively normotensive since her admission. Continue home dose carvedilol. Permissive HTN to maintain cerebral blood flow to the ischemic brain regions - Time Time Spent with patient: 15-24 minutes Medications reviewed and adjusted accordingly: Yes Anticipated discharge: Home Within: within 24 hours - Inpatient Certification Based on my medical assessment, after consideration of the patient's comorbidities, presenting symptoms, or acuity I expect that the services needed warrant INPATIENT care.: Yes I certify that my determination is in accordance with my understanding of Medicare's requirements for reasonable and necessary INPATIENT services [42 CFR 412.3e].: Yes Medical Necessity: Risk of Complication if Not Cared For in Hospital
--- NOTE | 2018-03-17 16:26 | RADIOLOGY REPORT (SQ) ---
EXAM DESCRIPTION: MRI HEAD WITHOUT; MRA HEAD WITHOUT COMPLETED DATE/TIME: 03/17/2018 3:52 pm REASON FOR STUDY: new cva COMPARISON: Carotid Doppler 03/17/2018 CT brain 10/23/2016, 10/29/2018, 03/16/2018 Brain MRI 04/22/2015 TECHNIQUE: Multiplanar imaging includes non-contrasted T1, T2, FLAIR, and diffusion with ADC map seq uences. Images stored on PACS. 3D [id number] MRA exam of the [place] was performed, maximum intensity projected images and acquisition source data was reviewed LIMITATIONS: None. FINDINGS: ANATOMY: No development anomalies. Normal vascular flow voids. Pituitary fossa normal. CSF SPACES: Normal in size and contour. No hemorrhage. CEREBRUM: Diffusion-weighted images are positive for an acute nonhemorrhagic infarct in the left post erior temporal cortex and subcortical white matter extending into the left parietal region. There is also a small focus of acute ischemic change in the posterior left insular cortex. No acute hemorrhage in the cerebral hemispheres. There is an old infarct in the right posterior temporal cortex and subcortical white matter with brig ht surface T1 signal from chronic hemorrhagic staining. Extensive small vessel ischemic changes present in the bifrontal and biparietal hemispheric white mat ter. POSTERIOR FOSSA: Extensive chronic ischemic change throughout the cerebellum with a large right chron ic cerebellar infarct, and multiple small left cerebellar lacunar infarcts. No altered diffusion to suggest acute cerebellar ischemic change. No mass effect. No shift. DIFFUSION IMAGING: Positive for acute nonhemorrhagic infarct in the left posterior temporal cortex an d subcortical white matter, and left posterior insular cortex along the sylvian fissure. ORBITS: No masses. Globes normal. PARANASAL SINUSES: No fluid levels. Mucosa normal. [place] MRA: [place] MRA exam demonstrates no stenosis vascular malformation or ane urysm. This report was called to Lisandra Rivera IMPRESSION: Acute nonhemorrhagic infarct in the left posterior temporal/ parietal region and left po sterior insular cortex Extensive chronic small vessel ischemic change throughout the hemispheres. Old right posterior tempo ral infarct and bilateral cerebellar infarcts. No [place] stenosis, vascular malformation or aneurysm. EVIDENCE OF ACUTE STROKE: Yes COMMENT: Report called to Lisandra Rivera TECHNICAL DOCUMENTATION: JOB ID: [id number] [employer]- All Rights Reserved Reading location - IP/workstation name: [email or web address]
--- NOTE | 2018-03-17 16:26 | RADIOLOGY REPORT (SQ) ---
EXAM DESCRIPTION: MRI HEAD WITHOUT; MRA HEAD WITHOUT COMPLETED DATE/TIME: 03/17/2018 3:52 pm REASON FOR STUDY: new cva COMPARISON: Carotid Doppler 03/17/2018 CT brain 10/23/2016, 10/29/2018, 03/16/2018 Brain MRI 04/22/2015 TECHNIQUE: Multiplanar imaging includes non-contrasted T1, T2, FLAIR, and diffusion with ADC map seq uences. Images stored on PACS. 3D [id number] MRA exam of the [place] was performed, maximum intensity projected images and acquisition source data was reviewed LIMITATIONS: None. FINDINGS: ANATOMY: No development anomalies. Normal vascular flow voids. Pituitary fossa normal. CSF SPACES: Normal in size and contour. No hemorrhage. CEREBRUM: Diffusion-weighted images are positive for an acute nonhemorrhagic infarct in the left post erior temporal cortex and subcortical white matter extending into the left parietal region. There is also a small focus of acute ischemic change in the posterior left insular cortex. No acute hemorrhage in the cerebral hemispheres. There is an old infarct in the right posterior temporal cortex and subcortical white matter with brig ht surface T1 signal from chronic hemorrhagic staining. Extensive small vessel ischemic changes present in the bifrontal and biparietal hemispheric white mat ter. POSTERIOR FOSSA: Extensive chronic ischemic change throughout the cerebellum with a large right chron ic cerebellar infarct, and multiple small left cerebellar lacunar infarcts. No altered diffusion to suggest acute cerebellar ischemic change. No mass effect. No shift. DIFFUSION IMAGING: Positive for acute nonhemorrhagic infarct in the left posterior temporal cortex an d subcortical white matter, and left posterior insular cortex along the sylvian fissure. ORBITS: No masses. Globes normal. PARANASAL SINUSES: No fluid levels. Mucosa normal. [place] MRA: [place] MRA exam demonstrates no stenosis vascular malformation or ane urysm. This report was called to Lisandra Rivera IMPRESSION: Acute nonhemorrhagic infarct in the left posterior temporal/ parietal region and left po sterior insular cortex Extensive chronic small vessel ischemic change throughout the hemispheres. Old right posterior tempo ral infarct and bilateral cerebellar infarcts. No [place] stenosis, vascular malformation or aneurysm. EVIDENCE OF ACUTE STROKE: Yes COMMENT: Report called to Lisandra Rivera TECHNICAL DOCUMENTATION: JOB ID: [id number] [employer]- All Rights Reserved Reading location - IP/workstation name: [email or web address]
--- NOTE | 2018-03-17 17:56 | XCELERA REPORT ---
[address] [address] Transthoracic Echocardiogram Report Name: TATYANA DONAHUE Age: 72 yrs Gender: Female : 1945 Patient Status: Inpatient Patient Location: [address] [address] Study Date: 03/17/2018 09:28 AM Height: 65 in Weight: 240 lb BSA: 2.1 m2 Procedure: A two-dimensional transthoracic echocardiogram with color flow and Doppler was performed. Study Quality: Fair. Reason For Study: cva History: CVA. Ordering Physician: TONI MCCLOUD Performed By: Sharla Camarena Interpretation Summary The left ventricle is normal in size. There is normal left ventricular wall thickness. LV EF is 60% Left ventricular systolic function is normal. Doppler measurements suggest impaired left ventricular relaxation, which is associated with grade I/IV or mild diastolic dysfunction The left ventricular wall motion is normal. There is no thrombus. The right atrium is normal. The left atrial size is normal. The interatrial septum is intact with no evidence for an atrial septal defect. There is no evidence of mitral valve prolapse. There is no vegetation seen on the mitral valve. There is no mitral valve stenosis. There is a mild amount of mitral regurgitation There is no aortic valve stenosis There is no LVOT obstruction. No aortic regurgitation is present. There is no tricuspid stenosis. No tricuspid regurgitation. Cannot aassess RVSP / Pulmonary hypertension. There is no pulmonic valvular stenosis. There is no pulmonic valvular regurgitation. There is no pericardial effusion. MMode/2D Measurements & Calculations RVDd: 3.1 cm LVIDd: 4.6 cm FS: 33.7 % Ao root diam: 2.5 cm IVSd: 1.0 cm LVIDs: 3.0 cm EDV(Teich): 97.0 ml LVPWd: 0.95 cm ESV(Teich): 36.2 ml Ao root area: 5.0 cm2 EF(Teich): 62.6 % LA dimension: 3.2 cm Doppler Measurements & Calculations MV E max temo: MV P1/2t max temo: Ao V2 max: LV V1 max P.8 cm/sec 96.5 cm/sec 151.3 cm/sec 4.1 mmHg MV A max temo: MV P1/2t: 68.8 msec Ao max PG: LV V1 max: 113.0 cm/sec 9.2 mmHg 101.2 cm/sec MV E/A: 0.84 MVA(P1/2t): 3.2 cm2 MV dec slope: 411.0 cm/sec2 MV dec time: 0.16 sec PA V2 max: 81.9 cm/sec PA max P.7 mmHg Left Ventricle The left ventricle is normal in size. There is normal left ventricular wall thickness. LV EF is 60%. Left ventricular systolic function is normal. Doppler measurements suggest impaired left ventricular relaxation, which is associated with grade I/IV or mild diastolic dysfunction. The left ventricular wall motion is normal. There is no thrombus. There is no ventricular septal defect visualized. Right Ventricle The right ventricle is grossly normal size. Atria The right atrium is normal. The left atrial size is normal. The interatrial septum is intact with no evidence for an atrial septal defect. Mitral Valve There is no evidence of mitral valve prolapse. There is no vegetation seen on the mitral valve. There is no mitral valve stenosis. There is a mild amount of mitral regurgitation. Aortic Valve There is no aortic valve stenosis. There is no LVOT obstruction. No aortic regurgitation is present. Tricuspid Valve There is no tricuspid stenosis. No tricuspid regurgitation. Cannot aassess RVSP / Pulmonary hypertension. Pulmonic Valve There is no pulmonic valvular stenosis. There is no pulmonic valvular regurgitation. Great Vessels The aortic root is normal size. Effusions There is no pericardial effusion. : TONI MCCLOUD > Cate Maki
[2018-03-17] MEDS: ATORVASTATIN CALCIUM 10 MG TABLET PO SCH (21:13)
[2018-03-18 05:02] LABS: HEMATOCRIT 43.8 % (36.0-47.0); HEMOGLOBIN 14.7 g/dL (12.0-15.5); MEAN CORPUSCULAR HEMOGLOBIN 28.9 pg (27.0-33.4); MEAN CORPUSCULAR HGB CONC 33.6 g/dL (32.0-36.0); MEAN CORPUSCULAR VOLUME 86 fl (80-97); PLATELET COUNT 143 10^3/uL (150-450); RED BLOOD COUNT 5.08 10^6/uL (3.72-5.28); RED CELL DISTRIBUTION WIDTH 13.5 % (11.5-14.0); WHITE BLOOD COUNT 4.4 10^3/uL (4.0-10.5)
[2018-03-18] MEDS: HEPARIN SOD (PORCINE) 5,000 UNIT/ML 1 ML SYRINGE SUBCUT SCH (05:03)
[2018-03-18 05:29] LABS: ANION GAP 12 (5-19); BLOOD UREA NITROGEN 15 mg/dL (7-20); CALCIUM 9.2 mg/dL (8.4-10.2); CARBON DIOXIDE 26 mmol/L (22-30); CHLORIDE 106 mmol/L (98-107); GLUCOSE 91 mg/dL (75-110); PHOSPHORUS 3.9 mg/dL (2.5-4.5); POTASSIUM 3.6 mmol/L (3.6-5.0); SODIUM 143.7 mmol/L (137-145)
[2018-03-18 08:04] VITALS: BP 131/70
[2018-03-18] MEDS: ALPRAZOLAM 0.5 MG TABLET PO SCH (09:22)
[2018-03-18] MEDS: ASPIRIN 81 MG TABLET, CHEWABLE PO SCH (09:23)
[2018-03-18] MEDS: CARVEDILOL 3.125 MG TABLET PO SCH (09:23)
[2018-03-18] MEDS: CLOPIDOGREL BISULFATE 75 MG TABLET PO SCH (09:23)
--- NOTE | 2018-03-18 11:17 | ER Document Report ---
ED [employer]/Exc Criteria - Date/Time patient last known well: Date/Time: 03/15/18 1600 - Inclusion Criteria: 1: Patient presented to ED within 3 hours of acute ischemic stroke symptom onset ? -: No 2: Did baseline CT exclude intracranial hemorrhage and/or other risk factors? -: Yes 3: Is the age of the patient 18 years of age or greater? -: Yes : If any of the above questions are answered "NO" then stop, patient is not a candidate for Alteplase, : If all of the above questions are answered "YES" then continue with Exclusion Criteria. - Exclusion Criteria: 1: Is there evidence of intracranial hemorrhage on baseline CT? 2: Is there suspicion of subarachnoid hemorrhage (even if CT negative)? 3: Is there a history of serious head trauma, recent previous stroke or TN within 3 months? 4: Does the patient have a clinical presentation consistent with TN or post-TN pericarditis? 5: Is there history of intracranial hemorrhage? 6: On repeated measurement is Systolic BP greater than 185mmHg or Diastolic BP greater that 110 mmHg and is aggressive treatment needed to reduce blood pressure to these limits (e.g. constant infusion of an anti-hypertensive)? 7: Did the patient awake with stroke symptoms? 8: Has the patient had a lumbar puncture or an arterial puncture at a non- compressile site within 7 days? 9: With in the last 14 days did the patient have surgery or major trauma? 10: Is the patient or less than 2 weeks? 11: Was there any active bleeding or acute trauma? 12: Does the patient have intracranial neoplasm, arteriovenous malformation or aneurysm? 13: Does the patient have abnormal glucose (less than 50 or greater than 400mg/ dl)? Record glucose in Comment. 14: Patient has rapidly improving symptoms at the time Alteplase is to be Administered. 15: Does the patient have any risks for bleeding, including but not limited to: a.: Current use of Coumadin with PT greater than 15 seconds or INR greater than 1.7. b.: Current use of Pradaxa (Dabigatran). c.: Heparin administereed within the past 48 hours and PTT elevated. d.: Platelet count less than 100,000/mm. e.: Major surgery or serious trauma within 14 days. f.: Gastrointestinal or gynecological urinary bleeding within 14 days. g.: Myocardial Infarction (TN) within 3 months. : If the answer to any of the above questions is "YES" then stop, the patient is not a candidate for Alteplase. : If the answer to all of the above questions is "NO" then the patient may be eligible for the Administration of Alteplase. : If the patient is noted to have seizure activity at onset of Stroke symptoms; Consult Neurologist for further evaluation. - The patient is: -: Included and is eligible to receive Alteplase. *Initiate bed placement at higher level of care* Reviewd risks & benefits of thrombolytic therapy: I have reviewed the risks and benefits of thrombolytic therapy with the patient and/or his/her family. -: Excluded and not eligible to receive Alteplase for the above exclusions. -: Excluded and not eligible to receive Alteplase for other reasons (specify in comments): - Diagnosis of TIA: -: Patient presented with transient symptoms that are now resolved and no other neurologic findings are currently present. List symptoms in comments. -: Patient is NOT a candidate for tPA. -: ____(put name in comment) has been consulted for admission and continued evaluation of risk factor assessment.
--- NOTE | 2018-03-25 16:58 | PDOC PROGRESS REPORT ---
Subjective Subjective: Patient is a 72-year-old female with a history of CVA, TIA, hypertension, hyperlipidemia and depression who was recently discharged from the hospital after having an acute CVA on 03/16/2018. Patient initially had some confusion and expressive aphasia. Patient had already been taking Plavix, pravastatin as well as aspirin. Patient states that she followed up with her primary care provider yesterday after her discharge from the hospital. Patient does have an appointment on April 16 with speech therapy. Patient additionally reports that her primary doctor has made a referral to cardiology for a bubble test rule out other causes of her CVA, and also changed her pravastatin to atorvastatin. Daughter states that her primary doctor is in the process of giving her referral to a different neurologist. Patient and her daughter state that patient has been starting to improve on her ability to speak and find her words although still has some significant difficulty with speech. Patient and daughter deny any new neurologic deficits. Patient denies any recent illness or hospitalization. Patient states that she has been compliant with her medication regimen and has been able to obtain her medications as prescribed. Patient has a large support network that has helped her transition from the inpatient outpatient setting. Patient has no difficulty with obtaining at least 2 meals a day. Patient denies any dysphasia. Patient does not drive and has family members and friends who help her meet her transportation needs. Patient states that she has been staying active around her house and exercises at least 3 days a week. Patient also states that she has been making diet changes to help improve her health. Allergies/Adverse Reactions: Penicillins Allergy (Verified 12/30/17 09:32) Home Medications: Alprazolam [Xanax 0.5 mg Tablet] 0.5 mg PO Q12HP PRN 04/22/15 Amlodipine Besylate [Norvasc 5 mg Tablet] 5 mg PO DAILY 04/22/15 Bupropion HCl [Bupropion Xl] 150 mg PO Q12 04/22/15 Cholecalciferol (Vitamin D3) [Vitamin D] 1,000 unit PO BID 04/22/15 [place]-3/Dha/Epa/Fish Oil [Fish Oil 1,000 mg Softgel] 1 each PO DAILY 04/22/15 Carvedilol 3.125 mg PO Q12 12/30/17 Cyanocobalamin/FA/Pyridoxine [Folbee Tablet] 1 tab PO DAILY 12/30/17 Aspirin [Aspirin EC] 81 mg PO DAILY 03/16/18 Physical Exam Vital Signs: BP 131/83, HR 76, RR 18 General appearance: PRESENT: no acute distress, cooperative, well-nourished Head exam: PRESENT: atraumatic Eye exam: PRESENT: conjunctiva pink, EOMI Throat exam: ABSENT: tonsillar erythema, tonsillar exudate Neck exam: PRESENT: full ROM. ABSENT: carotid bruit, tenderness Respiratory exam: PRESENT: clear to auscultation conor, unlabored Cardiovascular exam: PRESENT: RRR, +S1, +S2 Pulses: PRESENT: normal radial pulses Vascular exam: PRESENT: normal capillary refill GI/Abdominal exam: PRESENT: soft. ABSENT: tenderness Musculoskeletal exam: PRESENT: ambulatory, full ROM Psychiatric exam: PRESENT: normal mood Skin exam: PRESENT: dry, warm. ABSENT: rash - Extreminites General upper extremity: Normal inspection, Normal ROM General lower extremity: Normal inspection, Normal ROM - Neurological Neuro grossly intact: Yes Cognition: negative: Confused [place] Coma Scale Eye Opening: Spontaneous [place] Coma Scale Verbal: Oriented [place] Coma Scale Motor: Obeys Commands [place] Coma Scale Total: 15 Speech: Expressive aphasia, Other - Patient with a occasional anomia Cranial nerves: Normal. negative: Facial palsy, Sensory deficit, Tongue deviation Cerebellar coordination: Normal. negative: Gait ataxia Motor strength normal: LUE, RUE, LLE, RLE Additional motor exam normals: Equal spring setter. negative: Involuntary movements, Pronator drift, Weakness, Hemiplegia Sensory: Normal Reflex grade: 0=absent. 1=hypoactive. 2=normal. 3=increased. 4=clonus Note: Extraocular movements intact without ptosis, facial sensation is intact bilaterally. Facial muscle strength is equal. Hearing is normal to casual conversation. Palate and uvula elevate symmetrically. Voice is normal. Shoulder shrug strong bilaterally. Tongue protrudes midline and moves symmetrically. Patient with good muscle tone 5 out of 5 strength to bilateral upper and lower extremities. No evidence of rigidity or spasticity, no tremor noted. Steady gait with normal base. Modified [place] scale: 2 MOCA score 3 Results - x laboratory: 03/17/18 03/17/18 03/18/18 04:39 04:39 04:38 WBC 4.6 RBC 5.03 Hgb 14.7 Hct 43.2 MCV 86 MCH 29.4 MCHC 34.1 RDW 13.5 Plt Count 152 Seg Neutrophils % 40.7 L Lymphocytes % 35.3 Monocytes % 17.4 H Eosinophils % 5.6 Basophils % 1.0 Absolute Neutrophils 1.9 Absolute Lymphocytes 1.6 Absolute Monocytes 0.8 Absolute Eosinophils 0.3 Absolute Basophils 0.0 Sodium 144.4 143.7 Potassium 3.8 3.6 Chloride 104 106 Carbon Dioxide 29 26 Anion Gap 11 12 BUN 13 15 Creatinine 0.88 0.95 Est GFR ( Amer) > 60 > 60 Est GFR (Non-Af Amer) > 60 58 L Glucose 91 91 Calcium 9.6 9.2 Phosphorus 3.9 Magnesium 2.1 Triglycerides 106 Cholesterol 112.75 LDL Cholesterol Direct < 30 VLDL Cholesterol 21.0 HDL Cholesterol 61 03/18/18 04:38 WBC 4.4 RBC 5.08 Hgb 14.7 Hct 43.8 MCV 86 MCH 28.9 MCHC 33.6 RDW 13.5 Plt Count 143 L Seg Neutrophils % Lymphocytes % Monocytes % Eosinophils % Basophils % Absolute Neutrophils Absolute Lymphocytes Absolute Monocytes Absolute Eosinophils Absolute Basophils Sodium Potassium Chloride Carbon Dioxide Anion Gap BUN Creatinine Est GFR ( Amer) Est GFR (Non-Af Amer) Glucose Calcium Phosphorus Magnesium Triglycerides Cholesterol LDL Cholesterol Direct VLDL Cholesterol HDL Cholesterol Radiology: Brain MRI with MRA 03/17/18 00:00 IMPRESSION: Acute nonhemorrhagic infarct in the left posterior temporal/ parietal region and left posterior insular cortex Extensive chronic small vessel ischemic change throughout the hemispheres. Old right posterior temporal infarct and bilateral cerebellar infarcts. No [place] stenosis, vascular malformation or aneurysm. EVIDENCE OF ACUTE STROKE: Yes Head MRI 03/17/18 00:00 IMPRESSION: Acute nonhemorrhagic infarct in the left posterior temporal/ parietal region and left posterior insular cortex Extensive chronic small vessel ischemic change throughout the hemispheres. Old right posterior temporal infarct and bilateral cerebellar infarcts. No [place] stenosis, vascular malformation or aneurysm. EVIDENCE OF ACUTE STROKE: Yes Carotid Doppler Study 03/17/18 20:44 IMPRESSION: NO HEMODYNAMICALLY SIGNIFICANT STENOSIS. Assessment and Plan - Plan Plan: Stroke risk factor management Hypertension: Goal blood pressure less than 140/90. Continue to take antihypertensive medications as prescribed. Monitor blood pressure daily and keep a log for primary care provider to review Continue aspirin and Plavix daily for stroke prevention. Monitor for any signs of abnormal bleeding. Cholesterol: LDL <30, goal LDL less than 70, goal HDL greater than 50. Continue to take dyslipidemia medication as prescribed. Follow-up with primary doctor to recheck fasting lipid panel given recent change in medication. Rehabilitation: Continue to expand physical activity as well as brain healthy activities such as puzzles, use of iPad, conversation, and word finding activities. Advanced directives: Patient and daughter were educated on the difference between a healthcare power of trade mark attorney and living will, and advised where they can obtain information on the creation of documents. Patient encouraged to keep follow-up appointment with primary doctor as planned in addition to the speech language pathology appointment she has scheduled on April 16. Patient and daughter encouraged to follow-up with neurology, pending her outpatient referral as well as cardiology for bubble testing.
--- NOTE | 2018-03-31 08:27 | PDOC DISCHARGE SUMMARY ---
General - Admit/Disc Date/PCP Admission Date/Primary Care Provider: 03/16/18 20:55 MADDI HEWITT MD Discharge Date: 03/18/18 - Discharge Diagnosis (1) Acute CVA (cerebrovascular accident) Is this a current diagnosis for this admission?: Yes (2) HTN (hypertension) Is this a current diagnosis for this admission?: Yes - Additional Information Resuscitation Status: Full Code Discharge Diet: Cardiac Discharge Activity: Activity As Tolerated Prescriptions: Atorvastatin Calcium 40 mg PO QHS #30 tablet Home Medications: Alprazolam [Xanax 0.5 mg Tablet] 0.5 mg PO Q12HP PRN 04/22/15 Amlodipine Besylate [Norvasc 5 mg Tablet] 5 mg PO DAILY 04/22/15 Bupropion HCl [Bupropion Xl] 150 mg PO Q12 04/22/15 Cholecalciferol (Vitamin D3) [Vitamin D] 1,000 unit PO BID 04/22/15 [place]-3/Dha/Epa/Fish Oil [Fish Oil 1,000 mg Softgel] 1 each PO DAILY 04/22/15 Clopidogrel Bisulfate [Plavix 75 mg Tablet] 75 mg PO DAILY #30 tablet 04/24/15 Carvedilol 3.125 mg PO Q12 12/30/17 Cyanocobalamin/FA/Pyridoxine [Folbee Tablet] 1 tab PO DAILY 12/30/17 Aspirin [Aspirin EC] 81 mg PO DAILY 03/16/18 Atorvastatin Calcium 40 mg PO QHS #30 tablet 03/18/18 History of Present Illness History of Present Illness: TATYANA DONAHUE is a 72 year old female with a past medical history of hypertension, dyslipidemia, obesity and remote CVA without deficit. Patient presents with greater than 24 hours of word finding difficulty and trouble using her iPad. She denies focal weakness, confusion, headache, palpitations nausea vomiting or chest pain. She denies recent change in medication regiment. Patient's daughter is at bedside who verifies history. She is currently in no distress and conversational. In the emergency room she is found to have a CT of the head suggestive of a left MCA infarct but an otherwise unremarkable workup. She receives aspirin and referred to the hospitalist for admission. Hospital Course Hospital Course: 72-year-old female who presented to the emergency department on 03/16/2018 with a 24 hour+ history of confusion and difficulty with word finding. CT head completed in the emergency department indicated a possible L MCA infarct. MRI/ MRA showed acute nonhemorrhagic infarct in the L posterior temporal/parietal region and L posterior insular cortex. Extensive chronic small vessel ischemic chages througout the hemispheres. Old R posterior temporal infarct. Carotid doppler did not show evidence of carotid artery stenosis or blockage. On exam, the patient was alert and oriented 3, able to answer all questions appropriately and speaking full sentences without pause. The patient did not exhibit symptoms of difficulty with word finding. Her speech was clear, she did not slur her words, and she was able to tolerate p.o. intake. No facial droop. Equal strength in all extremities, she was able to ambulate without difficulty. The patient denied any visual changes, headaches, or parasthesia. The patient was already taking plavix as secondary prevention following her previous stroke. She was instructed that there were no major medication modifications to be made. The dose of her statin was increased from 20mg to 40mg QHS as secondary stroke prevention. Lifestyle modifications were encouraged. Since the patient doesn't smoke or drink, but her BMI classifies her as obese, she was instructed to make healthier dietary choices. While inpatient, Mrs. Donahue met with the [facility] Stroke RN who provided the patient with outpatient resources specific to stroke patients (support groups, etc.). The patient was instructed to follow up with her outpatient neurologist. All discharge instructions were discussed with the patient and her family, they all stated understanding. Physical Exam Vital Signs: Temp Pulse Resp BP Pulse Ox 97.5 F 75 16 131/70 H 93 03/18/18 12:09 03/18/18 12:09 03/18/18 12:09 03/18/18 08:00 03/18/18 12:09 Results Laboratory Results: 03/18/18 04:38 03/18/18 04:38 Impressions: Chest X-Ray 03/16/18 18:20 IMPRESSION: No acute radiographic finding in the chest. Head CT 03/16/18 18:20 IMPRESSION: 1. Loss of tovar-white matter differentiation at the left parietal lobe, suggestive of an acute/ subacute infarct at the left MCA territory. No acute intracranial hemorrhage. 2. Diffuse parenchymal volume loss. Chronic microvascular ischemic changes with old left frontal and bilateral cerebellar infarcts. EVIDENCE OF ACUTE STROKE: YES. LEFT MCA Brain MRI with MRA 03/17/18 00:00 IMPRESSION: Acute nonhemorrhagic infarct in the left posterior temporal/ parietal region and left posterior insular cortex Extensive chronic small vessel ischemic change throughout the hemispheres. Old right posterior temporal infarct and bilateral cerebellar infarcts. No [place] stenosis, vascular malformation or aneurysm. EVIDENCE OF ACUTE STROKE: Yes Head MRI 03/17/18 00:00 IMPRESSION: Acute nonhemorrhagic infarct in the left posterior temporal/ parietal region and left posterior insular cortex Extensive chronic small vessel ischemic change throughout the hemispheres. Old right posterior temporal infarct and bilateral cerebellar infarcts. No [place] stenosis, vascular malformation or aneurysm. EVIDENCE OF ACUTE STROKE: Yes Carotid Doppler Study 03/17/18 20:44 IMPRESSION: NO HEMODYNAMICALLY SIGNIFICANT STENOSIS. Status: Imported from PACS Qualifiers - * PATIENT BEING DISCHARGED WITH ANY OF THE FOLLOWING DIAGNOSIS: Stroke Stroke Pt being discharged on Anti-thrombolytic therapy?: No Reason(s) for not prescribing Anti-thrombolytic therapy:: Not indicated Stroke Pt being discharged on Anti-coagulation therapy?: Yes Stroke Pt being discharged on Statins?: Yes Plan Time Spent: Less than 30 Minutes
== END 2018-03-18 12:37 | disposition home or self-care (01) | DRG 66 ==
LOC: ER 18:03 → EH 20:55 → 3W 22:49
PROVIDERS: ADMIT Internal Medicine; ATTEND Internal Medicine
DX: I63.412 Cerebral infarction due to embolism of left middle cerebral artery (principal); I10 Essential (primary) hypertension; E78.00 Pure hypercholesterolemia, unspecified; E66.9 Obesity, unspecified; Z68.32 Body mass index [BMI] 32.0-32.9, adult; F32.9 Major depressive disorder, single episode, unspecified; R40.2412 Glasgow coma scale score 13-15, at arrival to emergency department; Z87.891 Personal history of nicotine dependence; Z88.0 Allergy status to penicillin; Z79.82 Long term (current) use of aspirin; Z79.899 Other long term (current) drug therapy; Z83.3 Family history of diabetes mellitus; Z82.49 Family history of ischemic heart disease and other diseases of the circulatory system
CPT/HCPCS: 36415; 70450; 70544; 70551; 71046; 80048; 80053; 80061; 81001; 82550; 82553; 83735; 84100; 84484; 85025; 85027; 85610; 85730; 93005; 93010; 93306; 93880; 99285; G9162-GN; G9163-GN; J1644; J3490

== ENCOUNTER 2018-09-07 20:33 | Emergency (ER) | payer MEDICARE, OTHER ==
--- NOTE | 2018-09-07 21:18 | RADIOLOGY REPORT (SQ) ---
EXAM DESCRIPTION: CT HEAD WITHOUT IV CONTRAST COMPLETED DATE/TME: 09/07/2018 20:36 CLINICAL HISTORY: 72 years, Female, stroke alert This exam was performed according to our departmental dose-optimization program which includes automated exposure control, adjustment of the mA and/or kVp according to patient size and/or use of iterative reconstruction technique where applicable. FINDINGS: No acute intracranial hemorrhage, mass effect or midline shift. No extra-axial fluid collections. Ventricles and subarachnoid spaces are moderately dilated consistent with cerebral atrophy. Extensive patchy hypodense areas in the periventricular white matter of both cerebral hemispheres consistent with chronic small vessel ischemic changes. Visualized paranasal sinuses and the mastoid air cells are clear. The skull is intact. IMPRESSION: No acute intracranial hemorrhage. Extensive chronic small vessel ischemic changes.
--- NOTE | 2018-09-07 21:21 | RADIOLOGY REPORT (SQ) ---
EXAM DESCRIPTION: XR CHEST 1 VIEW COMPLETED DATE/TME: 09/07/2018 20:36 CLINICAL HISTORY: 72 years, Female, stroke alert Findings: The heart is mildly enlarged. Aorta is within normal limits. No consolidations or pleural effusions. No pulmonary edema or pneumothorax. IMPRESSION: No acute disease.
[2018-09-07 21:30] LABS: ABSOLUTE BASOPHILS # (AUTO) 0.1 10^3/uL (0.0-0.2); ABSOLUTE EOSINOPHILS # (AUTO) 0.2 10^3/uL (0.0-0.6); ABSOLUTE LYMPHOCYTES (AUTO) 1.5 10^3/uL (0.5-4.7); ABSOLUTE MONOCYTES (AUTO) 0.7 10^3/uL (0.1-1.4); ABSOLUTE NEUT (AUTO) 2.4 10^3/uL (1.7-8.2); EOSINOPHILS % (AUTO) 4.3 % (0-6); HEMATOCRIT 44.1 % (36.0-47.0); HEMOGLOBIN 15.3 g/dL (12.0-15.5); LYMPHOCYTES % (AUTO) 30.5 % (13-45); MEAN CORPUSCULAR HEMOGLOBIN 30.1 pg (27.0-33.4); MEAN CORPUSCULAR HGB CONC 34.8 g/dL (32.0-36.0); MEAN CORPUSCULAR VOLUME 87 fl (80-97); MONOCYTES % (AUTO) 14.6 % (3-13); PLATELET COUNT 153 10^3/uL (150-450); RED BLOOD COUNT 5.09 10^6/uL (3.72-5.28); RED CELL DISTRIBUTION WIDTH 13.3 % (11.5-14.0); SEGMENTED NEUTROPHILS % (AUTO) 49.6 % (42-78); TOTAL CELLS COUNTED % (AUTO) 100 %; WHITE BLOOD COUNT 4.9 10^3/uL (4.0-10.5)
[2018-09-07 21:35] LABS: INTERNATIONAL RATION (INR) 0.99; PROTHROMBIN TIME 13.6 SEC (11.4-15.4)
[2018-09-07 21:36] LABS: PARTIAL THROMBOPLASTIN TIME 39.2 SEC (23.5-35.8)
[2018-09-07 21:47] LABS: ALANINE AMINOTRANSFERASE 43 U/L (9-52); ALBUMIN 4.2 g/dL (3.5-5.0); ALKALINE PHOSPHATASE 118 U/L (38-126); ANION GAP 13 (5-19); ASPARTATE AMINO TRANSFERASE 76 U/L (14-36); BILIRUBIN,DIRECT 0.2 mg/dL (0.0-0.4); BILIRUBIN,TOTAL 0.8 mg/dL (0.2-1.3); BLOOD UREA NITROGEN 10 mg/dL (7-20); CALCIUM 9.4 mg/dL (8.4-10.2); CARBON DIOXIDE 26 mmol/L (22-30); CHLORIDE 104 mmol/L (98-107); CREATINE KINASE 49 U/L (30-135); GLUCOSE 98 mg/dL (75-110); POTASSIUM 4.2 mmol/L (3.6-5.0); SODIUM 142.9 mmol/L (137-145)
[2018-09-07 21:59] LABS: CREATINE KINASE MB 0.53 ng/mL (<4.55)
[2018-09-07 22:02] LABS: TROPONIN I < 0.012 ng/mL
--- NOTE | 2018-09-07 23:13 | ER Document Report ---
ED General - General Chief Complaint: S/S of Possible Stroke Stated Complaint: STROKE SYMPTOMS CONCERN Time Seen by Provider: 09/07/18 20:56 Mode of Arrival: Ambulatory Information source: Patient Notes: This is a 72-year-old female with a history of strokes in the past (she has a baseline expressive a aphasia) who presents to the emergency room with complaints of "just not feeling right". Patient states she did call her sister who brought her to the emergency room. The sister states that her speech pattern is at baseline. Patient has no focal motor weakness or sensory changes. She denies chest pain or shortness of breath or abdominal pain. TRAVEL OUTSIDE OF THE [place] IN LAST 30 DAYS: No - HPI Onset: Just prior to arrival Onset/Duration: Sudden Quality of pain: No pain Severity: None Pain Level: Denies Associated symptoms: denies: Chest pain, Diarrhea, Fever, Nausea, Vomiting, Shortness of breath Exacerbated by: Denies Relieved by: Denies Similar symptoms previously: No Recently seen / treated by doctor: Yes - Related Data Allergies/Adverse Reactions: Penicillins Allergy (Verified 12/30/17 09:32) Past Medical History - General Information source: Patient - Social History Smoking Status: Unknown if Ever Smoked Cigarette use (# per day): No Chew tobacco use (# tins/day): No Frequency of alcohol use: None Drug Abuse: None Lives with: Spouse/Significant other Family History: DM, Hypertension Patient has suicidal ideation: No Patient has homicidal ideation: No - Past Medical History Cardiac Medical History: Reports: Hx Hypercholesterolemia, Hx Hypertension Neurological Medical History: Reports: Hx Cerebrovascular Accident Renal/ Medical History: Denies: Hx Peritoneal Dialysis Psychiatric Medical History: Reports: Hx Depression Past Surgical History: Reports: Hx Section, Hx Gynecologic Surgery - Immunizations Hx Diphtheria, Pertussis, Tetanus Vaccination: - unknown Hx Pneumococcal Vaccination: 11/03/17 Review of Systems - Review of Systems Constitutional: denies: Chills, Fever EENT: No symptoms reported Cardiovascular: No symptoms reported Respiratory: No symptoms reported Gastrointestinal: No symptoms reported Genitourinary: No symptoms reported Female Genitourinary: No symptoms reported Musculoskeletal: No symptoms reported Skin: No symptoms reported Hematologic/Lymphatic: No symptoms reported Neurological/Psychological: See HPI Physical Exam - Vital signs Vitals: Pulse Resp BP Pulse Ox 85 22 H 155/90 H 94 09/07/18 20:37 09/07/18 20:37 09/07/18 20:37 09/07/18 20:37 Notes: Physical exam: GENERAL: Is alert and oriented x3, no acute distress. She is at her baseline as per the patient's sister. HEAD: Atraumatic EYES: Pupils equal round and reactive to light, extraocular movements intact, sclera anicteric, conjunctiva are normal. ENT: TMs normal, nares patent, oropharynx clear without exudates. Moist mucous membranes. NECK: Normal range of motion, supple without obvious mass or JVD. Patient has no cervical spine tenderness. LUNGS: Breath sounds clear to auscultation bilaterally and equal. No wheezes rales or rhonchi. HEART: Regular rate and rhythm without murmurs, rubs or gallops. ABDOMEN: Soft, normoactive bowel sounds. No tenderness to palpation. No guarding, no rebound. No masses appreciated. EXTREMITIES: Normal range of motion, no pitting or edema. No clubbing or cyanosis. NEUROLOGICAL: Cranial nerves II through XII grossly intact. Patient has an expressive aphasia which the patient's sister reports is normal. Moving all extremities. Motor is 5/5, cerebellar is grossly intact (finger to nose is good in both extremities), sensory is grossly intact. PSYCH: Normal mood, normal affect. SKIN: Warm, Dry, normal turgor, no rashes or lesions noted. Course - Re-evaluation Re-evalutation: 09/08/18 03:07 Note: As per the family, patient does have an expressive aphasia and is confused at times. She is anxious and is on Xanax daily. Her exam is not consistent with a CVA. She came in because she just "did not feel right". Her expressive aphasia was the same compared to previous. Her motor and sensory exam and cerebellar exam was quite good. CT and labs all look good. I do not believe that she was having an acute cerebral event. I gave her reassurance and she is to follow-up with her primary care doctor. - Vital Signs Vital signs: Temp Pulse Resp BP Pulse Ox 97.5 F 68 14 141/72 H 97 09/07/18 23:58 09/07/18 23:58 09/07/18 23:58 09/07/18 23:58 09/07/18 23:48 - Laboratory Result Diagrams: 09/07/18 21:20 09/07/18 21:20 Laboratory results interpreted by me: 09/07/18 09/07/18 09/07/18 21:20 21:20 21:20 Monocytes % 14.6 H APTT 39.2 H AST 76 H - Diagnostic Test Radiology reviewed: Image reviewed, Reports reviewed - CT of the head shows no acute bleed or stroke. Chest x-ray is clear - EKG Interpretation by Me Rate: Normal Rhythm: NSR - EKG shows normal sinus rhythm with a ventricular rate of 74, no acute ST-T wave changes Discharge - Discharge Clinical Impression: Near syncope Clinical Impression: (Ruled Out): Head contusion status post fall Condition: Stable Disposition: HOME, SELF-CARE Additional Instructions: As we discussed, the CT of the head showed no bleeding or stroke. Your blood work looked good today. Your exam was at baseline and shows no evidence of acute stroke. I want you to follow-up with your primary care doctor: Bring a copy of today's labs with you and CT report when you go. Keep in mind that the Xanax is a medicine that can make you forgetful at times. Continue current medicines. Return to the ER for any worsening speech, confusion, weakness of the arms or legs or any concerns or getting worse. Referrals: MADDI HEWITT MD [Primary Care Provider] - Follow up in 3-5 days
[2018-09-07 23:56] VITALS: BP 141/72
--- NOTE | 2018-09-08 07:28 | EKG REPORT ---
SEVERITY:- ABNORMAL ECG - SINUS RHYTHM LEFT VENTRICULAR HYPERTROPHY BORDERLINE T ABNORMALITIES, INFERIOR LEADS : Confirmed by: Marv Marcial MD 08-Sep-2018 07:27:54
== END 2018-09-08 | disposition home or self-care (01) ==
LOC: ER 20:33
DX: R42 Dizziness and giddiness (principal); R47.01 Aphasia; I10 Essential (primary) hypertension; Z86.73 Personal history of transient ischemic attack (TIA), and cerebral infarction without residual deficits; X58.XXXA Exposure to other specified factors, initial encounter
CPT/HCPCS: 36415; 70450; 71045; 80053; 82550; 82553; 84484; 85025; 85610; 85730; 93005; 93010; 99285

== ENCOUNTER 2020-03-17 15:20 | Observation (INO) | payer MEDICARE, OTHER ==
--- NOTE | 2020-03-17 16:17 | RADIOLOGY REPORT (SQ) ---
EXAM DESCRIPTION: CHEST SINGLE VIEW IMAGES COMPLETED DATE/TIME: 03/17/2020 4:09 pm REASON FOR STUDY: ams COMPARISON: 09/07/2018 EXAM PARAMETERS: NUMBER OF VIEWS: One view. TECHNIQUE: Single frontal radiographic view of the chest acquired. RADIATION DOSE: NA LIMITATIONS: None. FINDINGS: LUNGS AND PLEURA: No opacities, masses or pneumothorax. No pleural effusion. MEDIASTINUM AND HILAR STRUCTURES: No masses. Contour normal. HEART AND VASCULAR STRUCTURES: Heart normal in size. Normal vasculature. BONES: No acute findings. HARDWARE: None in the chest. OTHER: No other significant finding. IMPRESSION: NO ACUTE RADIOGRAPHIC FINDING IN THE CHEST. TECHNICAL DOCUMENTATION: JOB ID: [id number] 2010 [employer]- All Rights Reserved Reading location - IP/workstation name: [email or web address]
[2020-03-17 16:34] LABS: ABSOLUTE BASOPHILS # (AUTO) 0.1 10^3/uL (0.0-0.2); ABSOLUTE LYMPHOCYTES (AUTO) 1.6 10^3/uL (0.5-4.7); ABSOLUTE NEUT (AUTO) 5.9 10^3/uL (1.7-8.2); BASOPHILS % (AUTO) 0.8 % (0-2); EOSINOPHILS % (AUTO) 0.2 % (0-6); HEMATOCRIT 44.4 % (36.0-47.0); HEMOGLOBIN 15.7 g/dL (12.0-15.5); MEAN CORPUSCULAR HEMOGLOBIN 30.3 pg (27.0-33.4); MEAN CORPUSCULAR HGB CONC 35.4 g/dL (32.0-36.0); MEAN CORPUSCULAR VOLUME 86 fl (80-97); MONOCYTES % (AUTO) 12.2 % (3-13); PLATELET COUNT 184 10^3/uL (150-450); RED BLOOD COUNT 5.18 10^6/uL (3.72-5.28); RED CELL DISTRIBUTION WIDTH 13.5 % (11.5-14.0); SEGMENTED NEUTROPHILS % (AUTO) 68.8 % (42-78); TOTAL CELLS COUNTED % (AUTO) 100 %; WHITE BLOOD COUNT 8.6 10^3/uL (4.0-10.5)
[2020-03-17 16:51] LABS: ALBUMIN 4.5 g/dL (3.5-5.0); ALKALINE PHOSPHATASE 81 U/L (38-126); ANION GAP 10 (5-19); ASPARTATE AMINO TRANSFERASE 57 U/L (14-36); BILIRUBIN,TOTAL 1.5 mg/dL (0.2-1.3); BLOOD UREA NITROGEN 18 mg/dL (7-20); CALCIUM 9.7 mg/dL (8.4-10.2); CARBON DIOXIDE 24 mmol/L (22-30); CHLORIDE 104 mmol/L (98-107); GLUCOSE 116 mg/dL (75-110); POTASSIUM 3.7 mmol/L (3.6-5.0); TOTAL PROTEIN 8.3 g/dL (6.3-8.2)
[2020-03-17 16:52] LABS: ALCOHOL < 10 mg/dL (NONE DETECTED)
--- NOTE | 2020-03-17 16:52 | RADIOLOGY REPORT (SQ) ---
EXAM DESCRIPTION: CT HEAD WITHOUT IMAGES COMPLETED DATE/TIME: 03/17/2020 3:20 pm REASON FOR STUDY: ams COMPARISON: CT head, 09/07/2018 TECHNIQUE: Axial images acquired through the brain without intravenous contrast. Images reviewed wi th bone, brain and subdural windows. Additional sagittal and coronal reconstructions were generated. Images stored on PACS. All CT scanners at this facility use dose modulation, iterative reconstruction, and/or weight based d osing when appropriate to reduce radiation dose to as low as reasonably achievable (ALARA). [facility]: Dose Right [facility]: CareDose [facility]: Dose Right [facility]: Teradose 4D [facility]: [employer] RADIATION DOSE: CT Rad equipment meets quality standard of care and radiation dose reduction techniq ues were employed. CTDIvol: 53.2 mGy. DLP: 991 mGy-cm. mGy. LIMITATIONS: None. FINDINGS: VENTRICLES: Normal size and contour. CEREBRUM: No masses. No hemorrhage. No midline shift. No evidence for acute infarction. Normal gra y-white matter differentiation. Encephalomalacia and gliosis in the left parietooccipital lobe and l eft superior parietal lobe. Moderate patchy periventricular and deep white matter hypodense attenuat ion consistent with moderate chronic small vessel ischemic change. There is intracranial atheroscler osis. CEREBELLUM: Chronic encephalomalacia and gliosis in the bilateral cerebellar hemispheres. No mass or mass effect. EXTRAAXIAL SPACES: No fluid collections. No masses. ORBITS AND GLOBE: No intra- or extraconal masses. Normal contour of globe without masses. CALVARIUM: No fracture. PARANASAL SINUSES: No fluid or mucosal thickening. SOFT TISSUES: No mass or hematoma. OTHER: No other significant finding. IMPRESSION: 1. No acute intracranial hemorrhage, mass, or evidence of acute territorial infarct. 2. Chronic encephalomalacia and gliosis in the left parietal-occipital lobe, stable. 3. Chronic encephalomalacia and gliosis in the bilateral cerebellar hemispheres, stable. 4. Moderate chronic small vessel ischemic change and intracranial atherosclerosis, stable. EVIDENCE OF ACUTE STROKE: NO. COMMENT: Quality ID # [id number]: Final reports with documentation of one or more dose reduction techniques (e.g., Automated exposure control, adjustment of the mA and/or kV according to patient size, use of iterative reconstruction technique) TECHNICAL DOCUMENTATION: JOB ID: [id number] 2010 [employer]- All Rights Reserved Reading location - IP/workstation name: [email or web address]
[2020-03-17 18:16] LABS: APPEARANCE,URINE CLOUDY; BILIRUBIN,URINE NEGATIVE (NEGATIVE); COLOR,URINE AMBER; GLUCOSE, URINE NEGATIVE (NEGATIVE); KETONES,URINE NEGATIVE (NEGATIVE); LEUKOCYTE ESTERASE,URINE NEGATIVE (NEGATIVE); NITRITE,URINE NEGATIVE (NEGATIVE); PROTEIN,URINE 100 mg/dL (NEGATIVE); URINE SPECIFIC GRAVITY 1.016; UROBILINOGEN,URINE NEGATIVE mg/dL (<2.0)
[2020-03-17 18:34] LABS: URINE AMPHETAMINES SCREEN NEGATIVE; URINE BARBITURATES SCREEN NEGATIVE; URINE BENZODIAZEPINES SCREEN UNCONFIRMED POSITIVE; URINE COCAINE SCREEN NEGATIVE; URINE MARIJUANA (THC) SCREEN NEGATIVE; URINE METHADONE SCREEN NEGATIVE; URINE PHENCYCLIDINE SCREEN NEGATIVE
[2020-03-17 19:24] LABS: ACETAMINOPHEN < 10 ug/mL (10-30); SALICYLATE < 1.0 mg/dL (2.0-20.0)
--- NOTE | 2020-03-17 19:31 | ER Document Report ---
ED General - General Chief Complaint: Altered Mental Status Stated Complaint: ALTERED MENTAL STATUS Primary Care Provider: MADDI HEWITT MD [Primary Care Provider] - Follow up as needed TRAVEL OUTSIDE OF THE [place] IN LAST 30 DAYS: No - HPI Notes: Chief complaint: Altered mental status History of present illness: 74-year-old female with history of multiple prior strokes still living independently in her own home was found in an acute confusional state by her son-in-law when he went to her home this afternoon. He rang the doorbell and the patient said that she had been taking a bath and came in open the door while completely naked. He subsequently reported that the patient's telephone rang and she attempted to pick out hand a decorative object on the countertop and hold it to her face like she was going to answer the telephone. Upon further investigation family members note that all of her home medications were scattered in her bedroom and there were only a few Xanax tablets left in a bottle that she had had in the house for "a long time". She also takes low-dose aspirin and apparently most of the aspirin tablets were missing. Family members are not really able to quantitate how many pills of each were been present but it is strongly suspected that this lady may have unintentionally overdosed herself. They note that she ordinarily has a home health aide who comes in and sets medications out for her and she is previously been responsible for managing her own medications. I am not really able to obtain much history from the patient at this point as she is clearly altered. Family indicates the patient has a mild residual expressive aphasia from prior stroke but normally communicates with them without great difficulty. She is normally ambulatory without the use of any type of assistive device. - Related Data Allergies/Adverse Reactions: Sulfa (Sulfonamide Antibiotics) Allergy (Unknown, Verified 03/17/20 15:34) Penicillins Allergy (Verified 12/30/17 09:32) Home Medications: plavix, asa, xanax, lipitor, carvedilol Past Medical History - General Information source: Patient, Relative, Emergency Med Personnel, [facility] Records Cannot obtain history due to: Altered mental status - Social History Smoking Status: Unknown if Ever Smoked Chew tobacco use (# tins/day): No Family History: DM, Hypertension Patient has homicidal ideation: No - Past Medical History Cardiac Medical History: Reports: Hx Hypercholesterolemia, Hx Hypertension Neurological Medical History: Reports: Hx Cerebrovascular Accident Renal/ Medical History: Denies: Hx Peritoneal Dialysis Psychiatric Medical History: Reports: Hx Depression Past Surgical History: Reports: Hx Section, Hx Gynecologic Surgery - Immunizations Hx Diphtheria, Pertussis, Tetanus Vaccination: - unknown Hx Pneumococcal Vaccination: 11/03/17 Review of Systems - Review of Systems -: Yes ROS unobtainable due to patient's medical condition Physical Exam - Vital signs Vitals: Pulse Ox 95 03/17/20 15:21 - Notes Notes: GENERAL: Elderly female who is awake and alert but acutely confused. SKIN: Good turgor no rashes. HEAD: Normocephalic atraumatic. EYES: PERRLA. EOMI. Conjunctivae and sclerae clear. EARS: CANALS AND TMS CLEAR. NOSE: CLEAR. MOUTH: Moist mucosa. Good dentition. No stridor or edema. No drooling. NECK: Supple. No masses or thyromegaly. No adenopathy. Carotids 2+ without bruits. No JVD. BACK: Symmetrical without tenderness. CHEST: Respirations unlabored. Breath sounds clear and symmetrical. HEART: Regular rhythm. No murmur gallop or rub. ABDOMEN: Soft nontender without masses, organomegaly or rebound. Bowel sounds normally active. No bruits. GENITALIA: Deferred. EXTREMITIES: No edema. No calf tenderness. Cap refill less than 1.5 seconds. Dorsalis pedis and posterior tibial pulses 3+ and symmetrical. NEUROLOGICAL: GCS 12. Eyes are open spontaneously. Patient will follow simple verbal commands. Her speech is basically "word salad". Alert and oriented x3. Normal gait. Mildly slurred. Patient has expressive aphasia which is old per family. Cranial nerves II through XII intact. Sensorimotor and cerebellar normal. Normal tone. PSYCHIATRIC: Flat affect. Course - Vital Signs Vital signs: Temp Pulse Resp BP Pulse Ox 98.9 F 25 H 151/75 H 97 03/17/20 16:17 03/17/20 18:02 03/17/20 18:02 03/17/20 18:02 - Laboratory Result Diagrams: 03/17/20 16:24 03/17/20 16:24 Laboratory results interpreted by me: 03/17/20 03/17/20 03/17/20 16:24 16:24 16:24 Hgb 15.7 H Glucose 116 H Total Bilirubin 1.5 H AST 57 H ALT 42 H Total Protein 8.3 H Urine Protein Urine Blood Salicylates < 1.0 L Acetaminophen < 10 L 03/17/20 17:59 Hgb Glucose Total Bilirubin AST ALT Total Protein Urine Protein 100 H Urine Blood LARGE H Salicylates Acetaminophen Discharge - Discharge Clinical Impression: Accidental overdose of benzodiazepine Altered mental status Qualifiers: Altered mental status type: stupor Qualified Code(s): R40.1 - Stupor Condition: Fair Disposition: ADMITTED INPATIENT Admitting Provider: Wing (Hospitalist) Unit Admitted: Medical Floor Referrals: MADDI HEWITT MD [Primary Care Provider] - Follow up as needed
[2020-03-17] MEDS ORDERED: ONDANSETRON HCL INJ/PF 4 MG/2 ML SDV IV PRN (20:58)
[2020-03-17] MEDS ORDERED: MAG HYDROX/AL HYDROX/SIMETH SUSP 30 ML UDCUP PO PRN (20:58)
[2020-03-17] MEDS ORDERED: METOPROLOL TARTRATE PF/INJ 5 MG/5 ML SDV IV PRN (21:13)
[2020-03-17] MEDS ORDERED: HYDRALAZINE HCL INJ/PF 20 MG/1 ML SDV IV PRN (21:13)
[2020-03-17] MEDS ORDERED: ACETAMINOPHEN 325 MG TABLET PO PRN (21:13)
[2020-03-17] MEDS ORDERED: GUAIFENESIN SYRP 200 MG/10 ML UDC PO PRN (21:13)
[2020-03-18] MEDS: HEPARIN SOD (PORCINE) 5,000 UNIT/ML 1 ML VIAL SUBCUT SCH ×4 (00:48→22:06)
[2020-03-18] MEDS: FAMOTIDINE 20 MG TABLET PO SCH ×3 (00:49→22:08)
--- NOTE | 2020-03-18 01:55 | PDOC H&P ---
History of Present Illness Admission Date/PCP: 03/17/20 20:05 MADDI HEWITT MD Patient complains of: Altered mental status History of Present Illness: TATYANA DONAHUE is a 74 year old female who presents the emergency room with acute altered mental status. Patient is delirious secondary to probable self- administered accidental overdose of alprazolam. She was found by her family at home where they noted a bottle of Xanax that the patient had kept on hand lying on the floor with a few remaining tablets scattered on the floor with the bottle. She was acting strangely wandering around the house nude and being very inappropriate in her responses and spontaneous utterances. The patient was last noted well yesterday. Patient's son provides the history that is available and is unaware of any additional possible aggravating or ameliorating factors for the patient's acute altered mental status. He denies prior similar episodes. In the emergency room patient was found to have an unremarkable evaluation with the exception of a urinalysis positive for benzodiazepines. She was subsequently admitted to the hospital for further evaluation and treatment with concern for her disposition as she currently lives alone and her family is desirous of making a change in that status. Past Medical History Past Medical History: Patient is delirious and unable to provide historical input for past medical history, past surgical history, social history and family history therefore information presented here is the best available information from the most reliable available source. Cardiac Medical History: Reports: Hyperlipidema, Hypertension Pulmonary Medical History: Denies: Asthma, Chronic Obstructive Pulmonary Disease (COPD) EENT Medical History: Denies: Cataracts, Ears - Hearing aids Neurological Medical History: Reports: Ischemic CVA Denies: Hemorrhagic CVA, Seizures Endocrine Medical History: Denies: Diabetes Mellitus Type 1, Diabetes Mellitus Type 2, Hyperthyroidism, Hypothyroidism Renal/ Medical History: Denies: Chronic Kidney Disease, Nephrolithiasis Malignancy Medical History: Reports: None GI Medical History: Denies: Cirrhosis, Hepatitis Musculoskeltal Medical History: Denies: Fibromyalgia, Gout Skin Medical History: Denies: Eczema, Psoriasis Psychiatric Medical History: Reports: Depression Denies: Alcohol Dependency, Substance Abuse, Tobacco Dependency Traumatic Medical History: Reports: None Hematology: Denies: Anemia, Bleeding Tendencies Infectious Medical History: Reports: None Past Surgical History Past Surgical History: Patient is delirious and unable to provide historical input for past medical history, past surgical history, social history and family history therefore information presented here is the best available information from the most reliable available source. Past Surgical History: Reports: Section Social History Information Source: Relative, [facility] Records Lives with: Alone Smoking Status: Former Smoker Electronic Cigarette use?: No Frequency of Alcohol Use: None Hx Recreational Drug Use: No Drugs: None Hx Prescription Drug Abuse: No Past Social History Note: Patient is delirious and unable to provide historical input for past medical history, past surgical history, social history and family history therefore information presented here is the best available information from the most reliable available source. - Advance Directive Resuscitation Status: Full Code Surrogate healthcare decision maker:: Aysha Warner Family History Family History: DM, Hypertension Family History: Patient is delirious and unable to provide historical input for past medical history, past surgical history, social history and family history therefore information presented here is the best available information from the most reliable available source. Parental Family History Reviewed: Yes Children Family History Reviewed: No Sibling(s) Family History Reviewed.: Yes Medication/Allergy Home Medications: Alprazolam [Xanax 0.5 mg Tablet] 0.5 mg PO Q12HP PRN 04/22/15 Clopidogrel Bisulfate [Plavix 75 mg Tablet] 75 mg PO DAILY #30 tablet 04/24/15 Carvedilol 3.125 mg PO Q12 12/30/17 Cyanocobalamin/FA/Pyridoxine [Folbee Tablet] 1 tab PO DAILY 12/30/17 Aspirin [Aspirin EC] 81 mg PO DAILY 03/16/18 Atorvastatin Calcium 40 mg PO QHS #30 tablet 03/18/18 Allergies/Adverse Reactions: Sulfa (Sulfonamide Antibiotics) Allergy (Unknown, Verified 03/17/20 15:34) Penicillins Allergy (Verified 12/30/17 09:32) Review of Systems ROS unobtainable: Due to mental status - Acute delirium Physical Exam Vital Signs: Temp Pulse Resp BP Pulse Ox 98.9 F 26 H 131/66 H 98 03/17/20 16:17 03/17/20 20:02 03/17/20 20:02 03/17/20 20:02 General appearance: PRESENT: no acute distress, cooperative, obese, other - Obviously delirious Head exam: PRESENT: atraumatic, normocephalic Eye exam: PRESENT: conjunctiva pink. ABSENT: conjunctival injection, scleral icterus Ear exam: PRESENT: normal external ear exam. ABSENT: bleeding, drainage Mouth exam: PRESENT: dry mucosa, neck supple Neck exam: ABSENT: thyromegaly, tracheal deviation Respiratory exam: PRESENT: prolonged expiratory phas - Minimally prolonged expiratory phase noted in all rodriguez, symmetrical, unlabored, wheezes - Minimal expiratory wheezes noted in all rodriguez Cardiovascular exam: PRESENT: RRR. ABSENT: clicks, gallop, rubs Pulses: PRESENT: normal radial pulses, normal dorsalis pedis pul Vascular exam: PRESENT: normal capillary refill. ABSENT: pallor GI/Abdominal exam: PRESENT: normal bowel sounds, soft Rectal exam: PRESENT: deferred Extremities exam: ABSENT: joint swelling, pedal edema Musculoskeletal exam: ABSENT: deformity, dislocation Neurological exam: PRESENT: altered - Acutely delirious, aphasic - Underlying expressive aphasia. ABSENT: oriented to person, oriented to place, oriented to time, oriented to situation Psychiatric exam: PRESENT: unusual affect - Acute delirium, other - Calm Skin exam: PRESENT: dry, intact, warm. ABSENT: jaundice, rash, urticaria Results Laboratory Results: 03/17/20 16:24 03/17/20 16:24 03/17/20 03/17/20 03/17/20 16:24 16:24 17:59 WBC 8.6 RBC 5.18 Hgb 15.7 H Hct 44.4 MCV 86 MCH 30.3 MCHC 35.4 RDW 13.5 Plt Count 184 Seg Neutrophils % 68.8 Sodium 137.6 Potassium 3.7 Chloride 104 Carbon Dioxide 24 Anion Gap 10 BUN 18 Creatinine 0.85 Est GFR ( Amer) > 60 Glucose 116 H Calcium 9.7 Magnesium 2.0 Total Bilirubin 1.5 H AST 57 H Alkaline Phosphatase 81 Ammonia Total Protein 8.3 H Albumin 4.5 Urine Color ADAIR Urine Appearance CLOUDY Urine pH 6.0 Ur Specific [place] 1.016 Urine Protein 100 H Urine Glucose (UA) NEGATIVE Urine Ketones NEGATIVE Urine Blood LARGE H Urine Nitrite NEGATIVE Ur Leukocyte Esterase NEGATIVE Urine WBC (Auto) 1 Urine RBC (Auto) >182 03/17/20 19:00 WBC RBC Hgb Hct MCV MCH MCHC RDW Plt Count Seg Neutrophils % Sodium Potassium Chloride Carbon Dioxide Anion Gap BUN Creatinine Est GFR ( Amer) Glucose Calcium Magnesium Total Bilirubin AST Alkaline Phosphatase Ammonia < 8.7 L Total Protein Albumin Urine Color Urine Appearance Urine pH Ur Specific [place] Urine Protein Urine Glucose (UA) Urine Ketones Urine Blood Urine Nitrite Ur Leukocyte Esterase Urine WBC (Auto) Urine RBC (Auto) Impressions: Head CT 03/17/20 15:40 IMPRESSION: 1. No acute intracranial hemorrhage, mass, or evidence of acute territorial infarct. 2. Chronic encephalomalacia and gliosis in the left parietal-occipital lobe, stable. 3. Chronic encephalomalacia and gliosis in the bilateral cerebellar hemispheres, stable. 4. Moderate chronic small vessel ischemic change and intracranial atherosclerosis, stable. EVIDENCE OF ACUTE STROKE: NO. Chest X-Ray 03/17/20 15:41 IMPRESSION: NO ACUTE RADIOGRAPHIC FINDING IN THE CHEST. Assessment and Plan - Diagnosis (1) Acute delirium Is this a current diagnosis for this admission?: Yes (2) Poisoning by benzodiazepines, accidental (unintentional), initial encounter Is this a current diagnosis for this admission?: Yes (3) Elevated LFTs Is this a current diagnosis for this admission?: Yes (4) HTN (hypertension) Qualifiers: Hypertension type: essential hypertension Qualified Code(s): I10 - Essential (primary) hypertension Is this a current diagnosis for this admission?: Yes (5) Sequela of cerebrovascular accident Is this a current diagnosis for this admission?: Yes (6) Hyperlipidemia Qualifiers: Hyperlipidemia type: unspecified Qualified Code(s): E78.5 - Hyperlipidemia, unspecified Is this a current diagnosis for this admission?: Yes (7) Dysthymia Is this a current diagnosis for this admission?: Yes - Plan Summary Summary: Patient will be admitted to the medical floor where she will receive routine supportive and symptomatic cares. She will be observed closely with every 4 hours neuro checks. She will be maintained on a cardiac diet. Her usual home medications will be resumed, as appropriate, as soon as her medication list has been verified and reconciled. A speech therapy consultation, Occupational Therapy consultation, physical therapy consultation and older adult social work specialist consultation will be obtained. CBCs, metabolic profiles, magnesium levels and additional laboratory/radiographic evaluations will be obtained as appropriate. Hydralazine 20 mg IV every 4 hours will be used to maintain adequate blood pressure control if necessary. - Time Time Spent with patient: Less than 15 minutes Medications reviewed and adjusted accordingly: Yes Anticipated discharge: SNF - Inpatient Certification Based on my medical assessment, after consideration of the patient's comorbidities, presenting symptoms, or acuity I expect that the services needed warrant INPATIENT care.: Yes I certify that my determination is in accordance with my understanding of Medicare's requirements for reasonable and necessary INPATIENT services [42 CFR 412.3e].: Yes Medical Necessity: Need Close Monitoring Due to Risk of Patient Decompensation, Need for Neurological Checks, Risk of Complication if Not Cared For in Hospital
[2020-03-18 06:33] LABS: HEMATOCRIT 44.3 % (36.0-47.0); HEMOGLOBIN 15.5 g/dL (12.0-15.5); MEAN CORPUSCULAR HEMOGLOBIN 30.6 pg (27.0-33.4); MEAN CORPUSCULAR HGB CONC 35.1 g/dL (32.0-36.0); MEAN CORPUSCULAR VOLUME 87 fl (80-97); PLATELET COUNT 159 10^3/uL (150-450); RED BLOOD COUNT 5.07 10^6/uL (3.72-5.28); RED CELL DISTRIBUTION WIDTH 13.4 % (11.5-14.0); WHITE BLOOD COUNT 8.4 10^3/uL (4.0-10.5)
[2020-03-18 06:55] LABS: ALKALINE PHOSPHATASE 72 U/L (38-126); ANION GAP 7 (5-19); ASPARTATE AMINO TRANSFERASE 52 U/L (14-36); BILIRUBIN,TOTAL 1.6 mg/dL (0.2-1.3); BLOOD UREA NITROGEN 20 mg/dL (7-20); CALCIUM 9.5 mg/dL (8.4-10.2); CARBON DIOXIDE 26 mmol/L (22-30); CHLORIDE 103 mmol/L (98-107); CHOLESTEROL 90.02 mg/dL (0-200); GLUCOSE 111 mg/dL (75-110); POTASSIUM 3.6 mmol/L (3.6-5.0); TOTAL PROTEIN 7.1 g/dL (6.3-8.2); TRIGLYCERIDES 82 mg/dL (<150)
[2020-03-18 07:07] LABS: DIRECT LDL < 30 mg/dL (<100)
[2020-03-18] MEDS: ASPIRIN 81 MG TABLET, ENT COATED PO SCH (10:40)
[2020-03-18] MEDS: CARVEDILOL 3.125 MG TABLET PO SCH ×2 (10:40→22:07)
[2020-03-18] MEDS: DOCUSATE SODIUM 100 MG CAPSULE PO SCH ×2 (10:40→17:42)
[2020-03-18] MEDS: CLOPIDOGREL BISULFATE 75 MG TABLET PO SCH (10:40)
--- NOTE | 2020-03-18 14:36 | PDOC PROGRESS REPORT ---
Subjective Progress Note for:: 03/18/20 Reason For Visit: ACUTE DELIRIUM 2* ACCIDENTAL BENZO POISONING 03/18/2020 Patient admitted for altered mental status and possible overdose of Xanax Physical Exam Vital Signs: Temp Pulse Resp BP Pulse Ox 98.0 F 69 17 147/83 H 100 03/18/20 08:24 03/18/20 08:24 03/18/20 08:24 03/18/20 08:24 03/18/20 08:24 Intake & Output 03/17/20 03/18/20 03/19/20 06:59 06:59 06:59 Weight 80.1 kg General appearance: PRESENT: no acute distress Respiratory exam: PRESENT: clear to auscultation conor. ABSENT: rales, rhonchi, wheezes Cardiovascular exam: PRESENT: RRR. ABSENT: diastolic murmur, rubs, systolic murmur Neurological exam: PRESENT: altered, awake Psychiatric exam: PRESENT: agitated, depressed Results Laboratory Results: 03/18/20 05:30 03/18/20 05:30 03/17/20 03/17/20 03/17/20 16:24 16:24 17:59 WBC 8.6 RBC 5.18 Hgb 15.7 H Hct 44.4 MCV 86 MCH 30.3 MCHC 35.4 RDW 13.5 Plt Count 184 Seg Neutrophils % 68.8 Sodium 137.6 Potassium 3.7 Chloride 104 Carbon Dioxide 24 Anion Gap 10 BUN 18 Creatinine 0.85 Est GFR ( Amer) > 60 Glucose 116 H Calcium 9.7 Magnesium 2.0 Total Bilirubin 1.5 H AST 57 H Alkaline Phosphatase 81 Ammonia Total Protein 8.3 H Albumin 4.5 Triglycerides Cholesterol LDL Cholesterol Direct VLDL Cholesterol HDL Cholesterol TSH Urine Color ADAIR Urine Appearance CLOUDY Urine pH 6.0 Ur Specific [place] 1.016 Urine Protein 100 H Urine Glucose (UA) NEGATIVE Urine Ketones NEGATIVE Urine Blood LARGE H Urine Nitrite NEGATIVE Ur Leukocyte Esterase NEGATIVE Urine WBC (Auto) 1 Urine RBC (Auto) >182 03/17/20 03/18/20 03/18/20 19:00 05:30 05:30 WBC 8.4 RBC 5.07 Hgb 15.5 Hct 44.3 MCV 87 MCH 30.6 MCHC 35.1 RDW 13.4 Plt Count 159 Seg Neutrophils % Sodium 136.3 L Potassium 3.6 Chloride 103 Carbon Dioxide 26 Anion Gap 7 BUN 20 Creatinine 0.72 Est GFR ( Amer) > 60 Glucose 111 H Calcium 9.5 Magnesium 2.1 Total Bilirubin 1.6 H AST 52 H Alkaline Phosphatase 72 Ammonia < 8.7 L Total Protein 7.1 Albumin 4.0 Triglycerides 82 Cholesterol 90.02 LDL Cholesterol Direct < 30 VLDL Cholesterol 16.0 HDL Cholesterol 64 TSH Urine Color Urine Appearance Urine pH Ur Specific [place] Urine Protein Urine Glucose (UA) Urine Ketones Urine Blood Urine Nitrite Ur Leukocyte Esterase Urine WBC (Auto) Urine RBC (Auto) 03/18/20 05:30 WBC RBC Hgb Hct MCV MCH MCHC RDW Plt Count Seg Neutrophils % Sodium Potassium Chloride Carbon Dioxide Anion Gap BUN Creatinine Est GFR ( Amer) Glucose Calcium Magnesium Total Bilirubin AST Alkaline Phosphatase Ammonia Total Protein Albumin Triglycerides Cholesterol LDL Cholesterol Direct VLDL Cholesterol HDL Cholesterol TSH 3.12 Urine Color Urine Appearance Urine pH Ur Specific [place] Urine Protein Urine Glucose (UA) Urine Ketones Urine Blood Urine Nitrite Ur Leukocyte Esterase Urine WBC (Auto) Urine RBC (Auto) Impressions: Head CT 03/17/20 15:40 IMPRESSION: 1. No acute intracranial hemorrhage, mass, or evidence of acute territorial infarct. 2. Chronic encephalomalacia and gliosis in the left parietal-occipital lobe, stable. 3. Chronic encephalomalacia and gliosis in the bilateral cerebellar hemispheres, stable. 4. Moderate chronic small vessel ischemic change and intracranial atherosclerosis, stable. EVIDENCE OF ACUTE STROKE: NO. Chest X-Ray 03/17/20 15:41 IMPRESSION: NO ACUTE RADIOGRAPHIC FINDING IN THE CHEST. Assessment and Plan - Diagnosis (1) Altered mental status Qualifiers: Altered mental status type: stupor Qualified Code(s): R40.1 - Stupor Is this a current diagnosis for this admission?: Yes (2) Poisoning by benzodiazepines, accidental (unintentional), initial encounter Is this a current diagnosis for this admission?: Yes (3) Sequela of cerebrovascular accident Is this a current diagnosis for this admission?: Yes (4) HTN (hypertension) Qualifiers: Hypertension type: essential hypertension Qualified Code(s): I10 - Essential (primary) hypertension Is this a current diagnosis for this admission?: Yes - Plan Summary Summary: Patient will be admitted to the medical floor where she will receive routine supportive and symptomatic cares. She will be observed closely with every 4 hours neuro checks. She will be maintained on a cardiac diet. Her usual home medications will be resumed, as appropriate, as soon as her medication list has been verified and reconciled. A speech therapy consultation, Occupational Therapy consultation, physical therapy consultation and social media manager consultation will be obtained. CBCs, metabolic profiles, magnesium levels and additional laboratory/radiographic evaluations will be obtained as appropriate. Hydralazine 20 mg IV every 4 hours will be used to maintain adequate blood pressure control if necessary. 03/18/2020 Temperature 98 pulse 69 blood pressure 147/83 O2 sat 100% on room air Count remains normal 8400 hemoglobin 15.5 Lecture lites this morning are stable and normal total bilirubin slightly high 1.6 liver functions slightly high as well ammonia level is normal TSH is normal Urine shows a large amount of blood otherwise protein slightly elevated no sign of infection Toxicology is negative for aspirin negative for alcohol negative for marijuana but positive for benzodiazepines CT head scan shows evidence of encephalomalacia as well as gliosis from previous infarction also microvascular changes. Patient knew that she was at [facility] and that she was in [place] but did thought she was in [place] and also was possibly having some visual hallucinations as she was "picking and thin air" It sounds as though patient's baseline mental status is altered even when she is not overdosed on Xanax and family is requesting assistance with fdc facility.. This acute event patient seems to have no acute changes today and it is difficult to ascertain without family members here as to her baseline. Nursing has called the daughter and spoken to the daughter about the patient's condition Patient may have to be discharged back home as she does not currently meet criteria for inpatient admission nor for transfer to fdc facility from a hospital setting - Time Time Spent with patient: 25-34 minutes
[2020-03-18] MEDS ORDERED: ATORVASTATIN CALCIUM 40 MG TABLET PO SCH (22:00)
[2020-03-19] MEDS: HEPARIN SOD (PORCINE) 5,000 UNIT/ML 1 ML VIAL SUBCUT SCH (06:52)
[2020-03-19 09:45] VITALS: BP 118/65
[2020-03-19] MEDS: FAMOTIDINE 20 MG TABLET PO SCH (09:50)
[2020-03-19] MEDS: CARVEDILOL 3.125 MG TABLET PO SCH (09:50)
[2020-03-19] MEDS: DOCUSATE SODIUM 100 MG CAPSULE PO SCH (09:50)
[2020-03-19] MEDS: ASPIRIN 81 MG TABLET, ENT COATED PO SCH (09:50)
[2020-03-19] MEDS: CLOPIDOGREL BISULFATE 75 MG TABLET PO SCH (09:50)
--- NOTE | 2020-03-19 10:33 | EKG REPORT ---
SEVERITY:- ABNORMAL ECG - SINUS RHYTHM LVH BY VOLTAGE NONSPECIFIC T ABNORMALITIES, INFERIOR LEADS : Confirmed by: Lynn Merchant 19-Mar-2020 10:32:39
--- NOTE | 2020-03-19 17:21 | PDOC DISCHARGE SUMMARY ---
Impression - Admit/DC Date/PCP Admission Date/Primary Care Provider: 03/17/20 20:05 MADDI HEWITT MD Discharge Date: 03/19/20 - Discharge Diagnosis (1) Altered mental status Is this a current diagnosis for this admission?: Yes (2) Poisoning by benzodiazepines, accidental (unintentional), initial encounter Is this a current diagnosis for this admission?: Yes (3) [place] of cerebrovascular accident Is this a current diagnosis for this admission?: Yes (4) HTN (hypertension) Is this a current diagnosis for this admission?: Yes - Assessment Summary: Patient will be admitted to the medical floor where she will receive routine supportive and symptomatic cares. She will be observed closely with every 4 hours neuro checks. She will be maintained on a cardiac diet. Her usual home medications will be resumed, as appropriate, as soon as her medication list has been verified and reconciled. A speech therapy consultation, Occupational Therapy consultation, physical therapy consultation and social media marketing analyst consultation will be obtained. CBCs, metabolic profiles, magnesium levels and additional laboratory/radiographic evaluations will be obtained as appropriate. Hydralazine 20 mg IV every 4 hours will be used to maintain adequate blood pressure control if necessary. 03/18/2020 Temperature 98 pulse 69 blood pressure 147/83 O2 sat 100% on room air Count remains normal 8400 hemoglobin 15.5 Lecture lites this morning are stable and normal total bilirubin slightly high 1.6 liver functions slightly high as well ammonia level is normal TSH is normal Urine shows a large amount of blood otherwise protein slightly elevated no sign of infection Toxicology is negative for aspirin negative for alcohol negative for marijuana but positive for benzodiazepines CT head scan shows evidence of encephalomalacia as well as gliosis from previous infarction also microvascular changes. Patient knew that she was at [facility] and that she was in [place] but did thought she was in [place] and also was possibly having some visual hallucinations as she was "picking and thin air" It sounds as though patient's baseline mental status is altered even when she is not overdosed on Xanax and family is requesting assistance with care home facility.. This acute event patient seems to have no acute changes today and it is difficult to ascertain without family members here as to her baseline. Nursing has called the daughter and spoken to the daughter about the patient's condition Patient may have to be discharged back home as she does not currently meet criteria for inpatient admission nor for transfer to care home facility from a hospital setting 03/19/2020 Talking to family today it sounds though patient is back to her baseline with her fixed deficit of expressive aphasia and dysarthria Vital signs are stable today 98 4 pulse 67 blood pressure 129/58 O2 sat 97% on room air. Patient will start receiving home health. I spoke to patient's daughter Mckenzie, patient will stay off of the Xanax. Patient's meds will be removed from the house. Patient was admitted on 515 for altered mental status, accidental overdose on Xanax, hypertension, status post CVA Patient had no unusual lab findings. Patient's previous CVA with resulting encephalomalacia and gliosis made it difficult to obtain baseline functions, discussion with the nurses and the family ascertained the patient was back to her baseline at time of discharge - Additional Information Resuscitation Status: Full Code Discharge Diet: As Tolerated Discharge Activity: Activity As Tolerated Referrals: MADDI HEWITT MD [Primary Care Provider] - Follow up as needed Home Medications: Alprazolam [Xanax 0.5 mg Tablet] 0.5 mg PO Q12HP PRN 04/22/15 Clopidogrel Bisulfate [Plavix 75 mg Tablet] 75 mg PO DAILY #30 tablet 04/24/15 Carvedilol 3.125 mg PO Q12 12/30/17 Cyanocobalamin/FA/Pyridoxine [[place]bee Tablet] 1 tab PO DAILY 12/30/17 Aspirin [Aspirin EC] 81 mg PO DAILY 03/16/18 Atorvastatin Calcium 40 mg PO QHS #30 tablet 03/18/18 Acetaminophen [Tylenol 325 mg Tablet] 650 mg PO Q4HP PRN tablet 03/19/20 Docusate Sodium [Colace 100 mg Capsule] 100 mg PO BID capsule 03/19/20 Famotidine [Pepcid 20 mg Tablet] 20 mg PO Q12 tablet 03/19/20 Guaifenesin [Robitussin Syrup 200 mg/10 ml Ud Cup] 200 mg PO Q4HP PRN udc 03/19/20 Mag Hydrox/Al Hydrox/Simeth [Maalox Plus Susp 30 Udcup] 30 ml PO Q6HP PRN udc 03/19/20 History of Present Illiness History of Present Illness: TATYANA DONAHUE is a 74 year old female Physical Exam Vital Signs: Temp Pulse Resp BP Pulse Ox 98.3 F 83 20 118/65 98 03/19/20 11:40 03/19/20 11:40 03/19/20 11:40 03/19/20 11:40 03/19/20 11:40 Intake & Output 03/18/20 03/19/20 03/20/20 06:59 06:59 06:59 Intake Total 730 Balance 730 Weight 80.1 kg 78.9 kg Results Laboratory Results: WBC 8.4 10^3/uL (4.0-10.5) 03/18/20 05:30 RBC 5.07 10^6/uL (3.72-5.28) 03/18/20 05:30 Hgb 15.5 g/dL (12.0-15.5) 03/18/20 05:30 Hct 44.3 % (36.0-47.0) 03/18/20 05:30 MCV 87 fl (80-97) 03/18/20 05:30 MCH 30.6 pg (27.0-33.4) 03/18/20 05:30 MCHC 35.1 g/dL (32.0-36.0) 03/18/20 05:30 RDW 13.4 % (11.5-14.0) 03/18/20 05:30 Plt Count 159 10^3/uL (150-450) 03/18/20 05:30 Lymph % (Auto) 18.0 % (13-45) 03/17/20 16:24 [place] % (Auto) 12.2 % (3-13) 03/17/20 16:24 Eos % (Auto) 0.2 % (0-6) 03/17/20 16:24 Baso % (Auto) 0.8 % (0-2) 03/17/20 16:24 Absolute Neuts (auto) 5.9 10^3/uL (1.7-8.2) 03/17/20 16:24 Absolute Lymphs (auto) 1.6 10^3/uL (0.5-4.7) 03/17/20 16:24 Absolute Monos (auto) 1.0 10^3/uL (0.1-1.4) 03/17/20 16:24 Absolute Eos (auto) 0.0 10^3/uL (0.0-0.6) 03/17/20 16:24 Absolute Basos (auto) 0.1 10^3/uL (0.0-0.2) 03/17/20 16:24 Seg Neutrophils % 68.8 % (42-78) 03/17/20 16:24 Sodium 136.3 mmol/L (137-145) L 03/18/20 05:30 Potassium 3.6 mmol/L (3.6-5.0) 03/18/20 05:30 Chloride 103 mmol/L (98-107) 03/18/20 05:30 Carbon Dioxide 26 mmol/L (22-30) 03/18/20 05:30 Anion Gap 7 (5-19) 03/18/20 05:30 BUN 20 mg/dL (7-20) 03/18/20 05:30 Creatinine 0.72 mg/dL (0.52-1.25) 03/18/20 05:30 Est GFR ( Amer) > 60 (>60) 03/18/20 05:30 Est GFR (MDRD) Non-Af > 60 (>60) 03/18/20 05:30 Glucose 111 mg/dL (75-110) H 03/18/20 05:30 Calcium 9.5 mg/dL (8.4-10.2) 03/18/20 05:30 Magnesium 2.1 mg/dL (1.6-2.3) 03/18/20 05:30 Total Bilirubin 1.6 mg/dL (0.2-1.3) H 03/18/20 05:30 Direct Bilirubin 0.0 mg/dL (0.0-0.4) 03/18/20 05:30 Neonat Total Bilirubin Not Reportable 03/18/20 05:30 Neonat Direct Bilirubin Not Reportable 03/18/20 05:30 Neonat Indirect Bili Not Reportable 03/18/20 05:30 AST 52 U/L (14-36) H 03/18/20 05:30 ALT 42 U/L (<35) H 03/18/20 05:30 Alkaline Phosphatase 72 U/L (38-126) 03/18/20 05:30 Ammonia < 8.7 umol/L (9-33) L 03/17/20 19:00 Total Protein 7.1 g/dL (6.3-8.2) 03/18/20 05:30 Albumin 4.0 g/dL (3.5-5.0) 03/18/20 05:30 Triglycerides 82 mg/dL (<150) 03/18/20 05:30 Cholesterol 90.02 mg/dL (0-200) 03/18/20 05:30 LDL Cholesterol Direct < 30 mg/dL (<100) 03/18/20 05:30 VLDL Cholesterol 16.0 mg/dL (10-31) 03/18/20 05:30 HDL Cholesterol 64 mg/dL (>40) 03/18/20 05:30 TSH 3.12 uIU/mL (0.47-4.68) 03/18/20 05:30 Urine Color ADAIR 03/17/20 17:59 Urine Appearance CLOUDY 03/17/20 17:59 Urine pH 6.0 (5.0-9.0) 03/17/20 17:59 Ur Specific [place] 1.016 03/17/20 17:59 Urine Protein 100 mg/dL (NEGATIVE) H 03/17/20 17:59 Urine Glucose (UA) NEGATIVE mg/dL (NEGATIVE) 03/17/20 17:59 Urine Ketones NEGATIVE mg/dL (NEGATIVE) 03/17/20 17:59 Urine Blood LARGE (NEGATIVE) H 03/17/20 17:59 Urine Nitrite NEGATIVE (NEGATIVE) 03/17/20 17:59 Urine Bilirubin NEGATIVE (NEGATIVE) 03/17/20 17:59 Urine Urobilinogen NEGATIVE mg/dL (<2.0) 03/17/20 17:59 Ur Leukocyte Esterase NEGATIVE (NEGATIVE) 03/17/20 17:59 Urine WBC (Auto) 1 /HPF 03/17/20 17:59 Urine RBC (Auto) >182 /HPF 03/17/20 17:59 Urine Bacteria (Auto) 1+ /HPF 03/17/20 17:59 Urine Mucus (Auto) RARE /LPF 03/17/20 17:59 Urine Ascorbic Acid NEGATIVE (NEGATIVE) 03/17/20 17:59 Salicylates < 1.0 mg/dL (2.0-20.0) L 03/17/20 16:24 Urine Opiates Screen NEGATIVE 03/17/20 17:59 Urine Methadone Screen NEGATIVE 03/17/20 17:59 Acetaminophen < 10 ug/mL (10-30) L 03/17/20 16:24 Ur Barbiturates Screen NEGATIVE 03/17/20 17:59 Ur Phencyclidine Scrn NEGATIVE 03/17/20 17:59 Ur Amphetamines Screen NEGATIVE 03/17/20 17:59 U Benzodiazepines Scrn UNCONFIRMED POSITIVE 03/17/20 17:59 Urine Cocaine Screen NEGATIVE 03/17/20 17:59 U Marijuana (THC) Screen NEGATIVE 03/17/20 17:59 Serum Alcohol < 10 mg/dL (NONE DETECTED) 03/17/20 16:24 Impressions: Head CT 03/17/20 15:40 IMPRESSION: 1. No acute intracranial hemorrhage, mass, or evidence of acute territorial infarct. 2. Chronic encephalomalacia and gliosis in the left parietal-occipital lobe, stable. 3. Chronic encephalomalacia and gliosis in the bilateral cerebellar hemispheres, stable. 4. Moderate chronic small vessel ischemic change and intracranial atherosclerosis, stable. EVIDENCE OF ACUTE STROKE: NO. Chest X-Ray 03/17/20 15:41 IMPRESSION: NO ACUTE RADIOGRAPHIC FINDING IN THE CHEST. Stroke Is this a Stroke Patient?: No Acute Heart Failure - Is this a Heart Failure Patient?: No
== END 2020-03-19 13:18 | disposition home health service (06) ==
LOC: ER 15:20 → EH 20:05 → INTOOBSV 20:05 → 4S 22:43
PROVIDERS: ADMIT Emergency Medicine; ATTEND Physician Assistant
DX: T42.4X1A Poisoning by benzodiazepines, accidental (unintentional), initial encounter (principal); R40.1 Stupor; Y92.009 Unspecified place in unspecified non-institutional (private) residence as the place of occurrence of the external cause; I69.320 Aphasia following cerebral infarction; I69.322 Dysarthria following cerebral infarction; I10 Essential (primary) hypertension; I69.398 Other sequelae of cerebral infarction; G93.89 Other specified disorders of brain; E78.5 Hyperlipidemia, unspecified; R79.89 Other specified abnormal findings of blood chemistry; F34.1 Dysthymic disorder; R26.89 Other abnormalities of gait and mobility; Z79.02 Long term (current) use of antithrombotics/antiplatelets; Z79.82 Long term (current) use of aspirin; Z79.899 Other long term (current) drug therapy; Z60.2 Problems related to living alone; Z87.891 Personal history of nicotine dependence
CPT/HCPCS: 93005; 99285; 36415 ×2; 80307 ×4; 82140; 83735 ×2; 84443; 85025; 85027; 80076; 80048; 80053; 81001; 80061; 71045; 70450; 93010; 97161; G0378 ×2; J1644; A9270 ×11; J3490